=== PATIENT | male | born 1935 | race Caucasian/White ===

== ENCOUNTER 2017-09-18 15:09 | Observation (INO) | payer MEDICARE ==
[2017-09-18 16:21] LABS: Hematocrit 40 % (42-52); Mean Corpuscular HGB Conc 33 g/dl (31-36); Mean Corpuscular Hemoglobin 28 pg (27-31); Mean Corpuscular Volume 86 fL (80-94); Mean Platelet Volume 9.1 um3 (7.4-10.4); Platelet Count 218 10^3/ul (150-450); Red Cell Distribution Width 15 % (10.5-15); White Blood Count 12.4 10^3/ul (3.5-10.8)
[2017-09-18 16:27] LABS: INR 1.06 (0.77-1.02)
[2017-09-18 16:35] LABS: EGFR Non-African American 60.9 (>60)
[2017-09-18 16:39] LABS: ABS Basophils 0.1 10^3/ul (0-0.2); ABS Eosinophils 0.3 10^3/ul (0-0.6); ABS Lymphocytes 2.3 10^3/ul (1.0-4.8); ABS Monocytes 1.7 10^3/ul (0-0.8); ABS Nucleated RBC 0 10^3/ul; Eosinophil % 2.4 % (0-6); Lymphocyte % 18.6 % (25-47); Nucleated Red Blood Cells % 0.1
--- NOTE | 2017-09-18 17:19 | RAD ---
INDICATION: Shortness of breath. COMPARISON: Comparison is made with a prior study from January 09, 2016. TECHNIQUE: AP and lateral views of the chest were obtained. FINDINGS: The heart appears within normal limits in size. There is elevation of the right hemidiaphragm which is unchanged from the prior exam. The left lung is also underinflated. There is a small infiltrate at the left lung base. There is suggestion of a trace left pleural effusion. IMPRESSION: 1. LOW LUNG VOLUMES, SMALL LEFT BASILAR INFILTRATE. 2. CHRONIC ELEVATION OF THE RIGHT HEMIDIAPHRAGM.
[2017-09-18] MEDS ORDERED: NS 0.9% 1000 ML* 1,000 ML IV ONE (17:25)
[2017-09-18] MEDS ORDERED: Levofloxacin 750 MG IVPREMIX(* 750 MG/150 ML BAG IVPB ONE (17:25)
[2017-09-18] MEDS ORDERED: Albuterol/Ipratropium NEB.SOL* Albuterol 2.5 MG/Ipratropium 0.5 MG 3 ML INH PRN (18:55)
[2017-09-18] MEDS ORDERED: NS 0.9% 1000 ML* 1,000 ML IV SCH (19:00)
[2017-09-18] MEDS ORDERED: Azithromycin IV(*) 500 MG in NS 0.9% 250 ML* 250 ML IVPB SCH (21:00)
[2017-09-18] MEDS ORDERED: QUEtiapine TAB* 100 MG PO SCH (21:00)
--- NOTE | 2017-09-18 21:04 | ED ---
Osmel Acuña Gabriel, scribed for Landry Cash MD on 09/18/17 at 1550 . Shortness of Breath - HPI Summary HPI Summary: This patient is a 82 year old M presenting to [facility] accompanied by his family with a chief complaint of SOB since last night. The patient rates the pain 0/10 in severity. Pt has had a cold for the last 4 days which got worse last night. He saw his PCP [employer] and they are concerned for a collapse lung. Patient denies fever. He currently has bilateral pink eye. - History of Current Complaint Chief Complaint: EDShortnessOfBreath Time Seen by Provider: 09/18/17 15:18 Hx Obtained From: Patient Onset/Duration: Lasting Weeks, Worse Since Timing: Constant Current Severity: Mild Dyspnea At: Exertion Associated Signs & Symptoms: Negative - fever - Allergy/Home Medications Allergies/Adverse Reactions: Allergies Allergy/AdvReac Type Severity Reaction Status Date / Time No Known Allergies Allergy Verified 01/09/16 14:41 Home Medications: Home Medications Aspirin EC TAB* [Ecotrin EC Low Dose 81 MG*] 81 mg PO DAILY 09/18/17 [History Confirmed 09/18/17] Cholecalciferol TAB* [Vitamin D TAB*] 2,000 units PO DAILY 09/18/17 [History Confirmed 09/18/17] Fluorometholone 0.1% OPTH.JACQUI* [Fml 0.1% Opth.susp*] 1 drop BOTH EYES DAILY [History Confirmed 09/18/17] Latanoprost 0.005%* [Xalatan 0.005%*] 1 drop BOTH EYES QPM 09/18/17 [History Confirmed 09/18/17] Loteprednol/Tobra 0.3/0.5%(NF) [Zylet 0.3/0.5% (NF)] 1 jacqui LEFT EYE DAILY [History Confirmed 09/18/17] QUEtiapine TAB* [SEROquel TAB*] 100 mg PO BEDTIME 09/18/17 [History Confirmed ] Tobramycin 0.3% OPHTH.ELFEGO* 1 drop LEFT EYE TID 09/18/17 [History Confirmed 09/18] amLODIPine TAB* [Norvasc 5 mg TAB*] 2.5 mg PO DAILY 09/18/17 [History Confirmed 09/18/17] PMH/Surg Hx/FS Hx/Imm Hx Endocrine/Hematology History: Denies: Hx Blood Transfusions, Hx Systemic Lupus Erythematosus Cardiovascular History: Denies: Hx Embolism Respiratory History: Reports: Hx Chronic Obstructive Pulmonary Disease (COPD) Sensory History: Reports: Hx Deafness Infectious Disease History: No Infectious Disease History: Denies: Traveled Outside the [place] in Last 30 Days - Family History Known Family History: Positive: Cardiac Disease - father - Social History Lives: With Family Alcohol Use: None Substance Use Type: Reports: None Smoking Status (MU): Former Smoker - 1987 Type: Cigarettes Review of Systems Negative: Fever Positive: Shortness Of Breath All Other Systems Reviewed And Are Negative: Yes Physical Exam - Summary Physical Exam Summary: Appearance: The patient is well-nourished in no acute distress and in no acute pain. Skin: The skin is warm and dry and skin color reflects adequate perfusion. HEENT: The head is normocephalic and atraumatic. The pupils are equal and reactive. The conjunctivae are red. Nares are patent and without drainage. Mouth reveals moist mucous membranes and the throat is without erythema and exudate. The external ears are intact. The ear canals are patent and without drainage. The tympanic membranes are intact. Neck: the neck is supple with full range of motion and non-tender. There are no carotid bruits. There is no neck vein distension. Respiratory: Chest is non-tender. There are crackles throughout worse on the right Cardiovascular: Heart is regular rate and rhythm. There is no murmur or rub auscultated. There is no peripheral edema and pulses are symmetrical and equal. Abdomen: The abdomen is soft and non-tender. There are normal bowel sounds heard in all four quadrants and there is no organomegaly palpated. Musculoskeletal: There is no back tenderness noted. Extremities are non-tender with full range of motion. There is good capillary refill. There is no peripheral edema or calf tenderness elicited. Neurological: Patient is alert and oriented to person, place and time. The patient has symmetrical motor strength in all four extremities. Cranial nerves are grossly intact. Deep tendon reflexes are symmetrical and equal in all four extremities. Psychiatric: The patient has an appropriate affect and does not exhibit any anxiety or depression. Triage Information Reviewed: Yes Vital Signs On Initial Exam: Initial Vitals Temp Pulse Resp BP Pulse Ox 98.5 F 67 22 137/107 97 09/18/17 15:11 09/18/17 15:11 09/18/17 15:11 09/18/17 15:11 09/18/17 15:11 Vital Signs Reviewed: Yes Diagnostics - Vital Signs Vital Signs Temp Pulse Resp BP Pulse Ox 09/18/17 15:11 98.5 F 67 22 137/107 97 - Laboratory Lab Results: Lab Results 09/18/17 09/18/17 09/18/17 Range/Units 16:05 16:05 16:05 WBC 12.4 H (3.5-10.8) 10^3/ul RBC 4.60 (4.0-5.4) 10^6/ul Hgb 13.0 L (14.0-18.0) g/dl Hct 40 L (42-52) % MCV 86 (80-94) fL MCH 28 (27-31) pg MCHC 33 (31-36) g/dl RDW 15 (10.5-15) % Plt Count 218 (150-450) 10^3/ul MPV 9.1 (7.4-10.4) um3 Neut % (Auto) 64.4 (38-83) % Lymph % (Auto) 18.6 L (25-47) % Bertie % (Auto) 14.1 H (0-7) % Eos % (Auto) 2.4 (0-6) % Baso % (Auto) 0.5 (0-2) % Absolute Neuts (auto) 8.0 H (1.5-7.7) 10^3/ul Absolute Lymphs (auto) 2.3 (1.0-4.8) 10^3/ul Absolute Monos (auto) 1.7 H (0-0.8) 10^3/ul Absolute Eos (auto) 0.3 (0-0.6) 10^3/ul Absolute Basos (auto) 0.1 (0-0.2) 10^3/ul Absolute Nucleated RBC 0 10^3/ul Nucleated RBC % 0.1 INR (Anticoag Therapy) (0.77-1.02) Sodium 140 (139-145) mmol/L Potassium 3.9 (3.5-5.0) mmol/L Chloride 105 (101-111) mmol/L Carbon Dioxide 26 (22-32) mmol/L Anion Gap 9 (2-11) mmol/L BUN 18 (6-24) mg/dL Creatinine 1.15 (0.67-1.17) mg/dL Est GFR ( Amer) 78.3 (>60) Est GFR (Non-Af Amer) 60.9 (>60) BUN/Creatinine Ratio 15.7 (8-20) Glucose 103 H (70-100) mg/dL Lactic Acid (0.5-2.0) mmol/L Calcium 9.2 (8.6-10.3) mg/dL Total Bilirubin 0.60 (0.2-1.0) mg/dL AST 22 (13-39) U/L ALT 15 (7-52) U/L Alkaline Phosphatase 133 H (34-104) U/L Troponin I 0.00 (<0.04) ng/mL C-Reactive Protein 103.15 H (< 5.00) mg/L B-Natriuretic Peptide 52 ( - 100) pg/mL Total Protein 6.8 (6.4-8.9) g/dL Albumin 3.3 (3.2-5.2) g/dL Globulin 3.5 (2-4) g/dL Albumin/Globulin Ratio 0.9 L (1-3) Procalcitonin (<0.6) ng/mL Influenza A (Rapid) (Negative) Influenza B (Rapid) (Negative) 09/18/17 09/18/17 09/18/17 Range/Units 16:05 16:05 16:05 WBC (3.5-10.8) 10^3/ul RBC (4.0-5.4) 10^6/ul Hgb (14.0-18.0) g/dl Hct (42-52) % MCV (80-94) fL MCH (27-31) pg MCHC (31-36) g/dl RDW (10.5-15) % Plt Count (150-450) 10^3/ul MPV (7.4-10.4) um3 Neut % (Auto) (38-83) % Lymph % (Auto) (25-47) % Bertie % (Auto) (0-7) % Eos % (Auto) (0-6) % Baso % (Auto) (0-2) % Absolute Neuts (auto) (1.5-7.7) 10^3/ul Absolute Lymphs (auto) (1.0-4.8) 10^3/ul Absolute Monos (auto) (0-0.8) 10^3/ul Absolute Eos (auto) (0-0.6) 10^3/ul Absolute Basos (auto) (0-0.2) 10^3/ul Absolute Nucleated RBC 10^3/ul Nucleated RBC % INR (Anticoag Therapy) 1.06 H (0.77-1.02) Sodium (139-145) mmol/L Potassium (3.5-5.0) mmol/L Chloride (101-111) mmol/L Carbon Dioxide (22-32) mmol/L Anion Gap (2-11) mmol/L BUN (6-24) mg/dL Creatinine (0.67-1.17) mg/dL Est GFR ( Amer) (>60) Est GFR (Non-Af Amer) (>60) BUN/Creatinine Ratio (8-20) Glucose (70-100) mg/dL Lactic Acid 2.2 H* (0.5-2.0) mmol/L Calcium (8.6-10.3) mg/dL Total Bilirubin (0.2-1.0) mg/dL AST (13-39) U/L ALT (7-52) U/L Alkaline Phosphatase (34-104) U/L Troponin I (<0.04) ng/mL C-Reactive Protein (< 5.00) mg/L B-Natriuretic Peptide ( - 100) pg/mL Total Protein (6.4-8.9) g/dL Albumin (3.2-5.2) g/dL Globulin (2-4) g/dL Albumin/Globulin Ratio (1-3) Procalcitonin 0.1 (<0.6) ng/mL Influenza A (Rapid) (Negative) Influenza B (Rapid) (Negative) 09/18/17 Range/Units 16:25 WBC (3.5-10.8) 10^3/ul RBC (4.0-5.4) 10^6/ul Hgb (14.0-18.0) g/dl Hct (42-52) % MCV (80-94) fL MCH (27-31) pg MCHC (31-36) g/dl RDW (10.5-15) % Plt Count (150-450) 10^3/ul MPV (7.4-10.4) um3 Neut % (Auto) (38-83) % Lymph % (Auto) (25-47) % Bertie % (Auto) (0-7) % Eos % (Auto) (0-6) % Baso % (Auto) (0-2) % Absolute Neuts (auto) (1.5-7.7) 10^3/ul Absolute Lymphs (auto) (1.0-4.8) 10^3/ul Absolute Monos (auto) (0-0.8) 10^3/ul Absolute Eos (auto) (0-0.6) 10^3/ul Absolute Basos (auto) (0-0.2) 10^3/ul Absolute Nucleated RBC 10^3/ul Nucleated RBC % INR (Anticoag Therapy) (0.77-1.02) Sodium (139-145) mmol/L Potassium (3.5-5.0) mmol/L Chloride (101-111) mmol/L Carbon Dioxide (22-32) mmol/L Anion Gap (2-11) mmol/L BUN (6-24) mg/dL Creatinine (0.67-1.17) mg/dL Est GFR ( Amer) (>60) Est GFR (Non-Af Amer) (>60) BUN/Creatinine Ratio (8-20) Glucose (70-100) mg/dL Lactic Acid (0.5-2.0) mmol/L Calcium (8.6-10.3) mg/dL Total Bilirubin (0.2-1.0) mg/dL AST (13-39) U/L ALT (7-52) U/L Alkaline Phosphatase (34-104) U/L Troponin I (<0.04) ng/mL C-Reactive Protein (< 5.00) mg/L B-Natriuretic Peptide ( - 100) pg/mL Total Protein (6.4-8.9) g/dL Albumin (3.2-5.2) g/dL Globulin (2-4) g/dL Albumin/Globulin Ratio (1-3) Procalcitonin (<0.6) ng/mL Influenza A (Rapid) Negative (Negative) Influenza B (Rapid) Negative (Negative) Result Diagrams: 09/18/17 16:05 09/18/17 16:05 Lab Statement: Any lab studies that have been ordered have been reviewed, and results considered in the medical decision making process. - Radiology CXR Radiology Interpretation Completed By: Radiologist - , 1. LOW LUNG VOLUMES, SMALL LEFT BASILAR INFILTRATE. 2. CHRONIC ELEVATION OF THE RIGHT HEMIDIAPHRAGM. ED physician has reviewed this radiology report - EKG 15:50 Cardiac Rate: NL EKG Rhythm: Sinus Rhythm - at 63 BPM EKG Interpretation: first degree AV block Course/Dx - Course Course Of Treatment: Mr. Miller was sent over from his PMD's office after a CXR was obtained. He had gone to the office because he has been getting weaker and weaker over the last week or so. He admits to a cough. His W/U here revealed reasonable vitals, an infiltrate and elevated WBC and CRP levels. He is too weak for his caregivers to manage at this point and the hospitalists have been contacted to evaluate him. - Diagnoses Provider Diagnoses: PNA (pneumonia) - Physician Notifications Discussed Care of Patient With: Eduardo Lewis Time Discussed With Above Provider: 17:42 Instructed by Provider To: Admit As Inpatient Discharge - Sign-Out/Discharge Documenting (check all that apply): Discharge - Discharge Plan Condition: Fair Disposition: ADMITTED TO [facility] - Billing Disposition and Condition Condition: FAIR Disposition: [facility] [place] The documentation as recorded by the Osmel sanabria Gabriel accurately reflects the service I personally performed and the decisions made by me, Landry Cash MD.
--- NOTE | 2017-09-18 21:24 | HP ---
CC: Dr. Gates * HISTORY AND PHYSICAL: DATE OF ADMISSION: 09/18/17 ATTENDING PHYSICIAN WHILE IN THE HOSPITAL: Basilia Cronin MD * (dictated by Naz Rosario NP). CHIEF COMPLAINT: 1. Cough. 2. Shortness of breath. HISTORY OF PRESENT ILLNESS: Mr. Miller is an 82-year-old gentleman with a past medical history significant for hypertension. He was at his primary care provider's office today for complaints of cough and congestion. He had a chest x- ray taken at the office and there were thoughts he may have a pneumothorax, so he was sent to the emergency room for further evaluation. The patient reports that he has had URI symptoms for the past 2 days and developed a cough yesterday that has progressively gotten worse. He denies any fever or chills, any nausea or vomiting. Denies any shortness of breath. Denies any abdominal pain or diarrhea. Denies any recent sick contacts. The patient also reports that he was recently diagnosed with conjunctivitis on Friday and was placed on tobramycin and a steroid eye drop by his doctor. The patient was seen and evaluated in the emergency room, routine lab work was drawn and a chest x-ray was completed. He was found to have left basilar infiltrate, so we were asked to see and evaluate him by the emergency room physician for admission for pneumonia. PAST MEDICAL HISTORY: Significant for: 1. Hypertension. 2. Glaucoma. PAST SURGICAL HISTORY: No surgical history. HOME MEDICATIONS: Include: 1. Aspirin 81 mg p.o. daily. 2. Vitamin D 3000 units p.o. daily. 3. Ibuprofen p.r.n. 4. Seroquel 100 mg p.o. at bedtime. 5. Xalatan 1 drop both eyes q.p.m. 6. Amlodipine 2.5 mg p.o. daily. 7. Tobramycin 0.3% ophthalmic solution 1 drop to both eyes t.i.d. ALLERGIES TO MEDICATIONS: No known drug allergies. FAMILY HISTORY: Father with an NC and mother with an NC, mother also had spine cancer. Brother also had some unknown cancer. SOCIAL HISTORY: The patient is a former smoker, he quit in 1972, prior to that he smoked cigars approximately 7 cigars a day. He does report that he drinks 2 to 3 times a week. He drinks vodka. He denies any illicit drug use. He is a full code. Surrogate decision maker in the event he is unable to make his own decisions is his son Itz Miller, his phone number is [phone]. REVIEW OF SYSTEMS: There was no documented fever, no significant weight change. He does report redness and itching to bilateral eyes. There has been no ear drainage. He does report rhinorrhea. He denies any sore throat. He denies any chest pain. He does report cough and congestion, but denies shortness of breath. He denies any abdominal pain. Denies nausea, vomiting or diarrhea. Denies dysuria or urinary frequency. Denies any hematuria. There were no seizures, no loss of consciousness, no pruritus or skin ulcerations. A review of 14 systems was completed and all others were negative. PHYSICAL EXAMINATION GENERAL: At this time, Mr. Miller is an 82-year-old male who appears in no acute distress, sitting on the stretcher in the emergency room. VITAL SIGNS: Blood pressure 124/84, heart rate is 72, respirations are 22 to 25 , O2 saturation is 96%, temperature on admission was 98.5. HEENT: Head is atraumatic, normocephalic. Eyes: EOMs are intact. Conjunctivae with redness and swelling. He also has some periorbital redness and swelling that is mild. Oral mucosa appears to be moist. No oropharyngeal erythema. NECK: Supple. LUNGS: Diminished throughout bilaterally with crackles in the left base. There are no wheezes or rales. CARDIAC: S1, S2, regular rate and rhythm. No murmurs, rubs or gallops. ABDOMEN: Soft and nontender. Bowel sounds are present x4. EXTREMITIES: Pulses are +2 throughout. He is moving all extremities with 5/5 strength. NEUROLOGIC: He is awake and alert and oriented x3. Gl[employer] Inspector are equal. Tongue is midline. Speech is clear. There is no focal neuro deficits. SKIN: Intact. He does have some mild erythema around bilateral eyes. DIAGNOSTIC AND LABORATORY DATA: WBCs are 12.4, RBCs 4.60, hemoglobin 13.0, hematocrit was 40, platelet count was 218,000. INR was 1.06. Sodium 140, potassium 3.9, chloride 105, carbon dioxide was 26, anion gap was 9, BUN was 18 , creatinine 1.15, glucose was 103, lactic acid 2.2. AST 22, ALT 15, alkaline phosphatase was 133, C-reactive protein was 103.15, BNP was 52, procalcitonin was 0.1. Chest x-ray, radiologist impression: 1. Low lung volumes, small left basilar infiltrate. 2. Chronic elevation of the right hemidiaphragm. EKG: Heart rate is 63, sinus rhythm. ASSESSMENT AND PLAN: Mr. Miller is an 82-year-old gentleman that presented to the emergency room today complaining of increased cough. He was found to have pneumonia on chest x-ray. He will admitted under observation for: 1. Pneumonia: I will place him on azithromycin and ceftriaxone. He can have albuterol and Atrovent nebulizers as needed for shortness of breath and wheezing. I will also give him guaifenesin for his cough. We will repeat CBC and BMP in the morning and repeat his lactic acid. 2. Conjunctivitis: He has bilateral conjunctivitis. He will be continued on his tobramycin and steroid eye drops as prior to admission. 3. Hypertension: He will be continued on Norvasc and aspirin. 4. DVT prophylaxis: We will place him on heparin subcu. 5. Code status: He is a full code. 6. Fluids, electrolytes and nutrition: He will have heart healthy, caffeine okay diet. TIME SPENT: Time spent on this admission was approximately 60 minutes, greater than half the time was spent [id number] with the patient obtaining my history and physical, the other half of the time was spent going over the plan of care with the patient and implementing that plan of care. I have discussed this with my attending, Dr. Basilia Cronin, and she is in agreement with my plan. NAZ ROSARIO, TRAVEL NURSE [id number]/[facility] #: [id number] SHANA
[2017-09-18] MEDS: guaiFENesin ER TAB 600 MG PO SCH (21:35)
[2017-09-18] MEDS: Tobramycin 0.3% OPHTH.SOL* 5 ML BOT (regular eye drops) LEFT EYE SCH (21:36)
[2017-09-18] MEDS: Heparin VIAL(*) 5000 UNITS/ML VIAL (FIVE THOUSAND) SUBCUT SCH (21:46)
[2017-09-19 05:31] LABS: ABS Basophils 0.1 10^3/ul (0-0.2); ABS Eosinophils 0.4 10^3/ul (0-0.6); ABS Lymphocytes 1.9 10^3/ul (1.0-4.8); ABS Monocytes 1.3 10^3/ul (0-0.8); ABS Neutrophils 5.9 10^3/ul (1.5-7.7); ABS Nucleated RBC 0 10^3/ul; Eosinophil % 3.8 % (0-6); Hematocrit 37 % (42-52); Hemoglobin 12.3 g/dl (14.0-18.0); Lymphocyte % 19.7 % (25-47); Mean Corpuscular HGB Conc 34 g/dl (31-36); Mean Corpuscular Hemoglobin 29 pg (27-31); Mean Corpuscular Volume 85 fL (80-94); Mean Platelet Volume 8.6 um3 (7.4-10.4); Nucleated Red Blood Cells % 0; Platelet Count 201 10^3/ul (150-450); Red Blood Count 4.31 10^6/ul (4.0-5.4); Red Cell Distribution Width 15 % (10.5-15); White Blood Count 9.5 10^3/ul (3.5-10.8)
[2017-09-19 05:47] LABS: EGFR Non-African American 66.9 (>60)
[2017-09-19] MEDS: Heparin VIAL(*) 5000 UNITS/ML VIAL (FIVE THOUSAND) SUBCUT SCH (06:18)
[2017-09-19 08:07] VITALS: BP 122/56
[2017-09-19] MEDS: Tobramycin 0.3% OPHTH.SOL* 5 ML BOT (regular eye drops) LEFT EYE SCH (08:45)
[2017-09-19] MEDS: guaiFENesin ER TAB 600 MG PO SCH (08:45)
[2017-09-19] MEDS ORDERED: cefTRIAXone(*) 1 GM in NS 0.9% 50 ML* 50 ML IVPB SCH (09:00)
[2017-09-19] MEDS ORDERED: Cholecalciferol TAB* 1000 UNITS PO SCH (09:00)
[2017-09-19] MEDS ORDERED: TOBRAMYCIN LEFT EYE SCH (09:00)
[2017-09-19] MEDS ORDERED: amLODIPine TAB* 5 MG PO SCH (09:00)
[2017-09-19] MEDS ORDERED: Fluorometholone 0.1% OPTH.SUS* 5 ML BTL BOTH EYES SCH (09:00)
[2017-09-19] MEDS ORDERED: Aspirin EC TAB* 81 MG TAB.EC PO SCH (09:00)
[2017-09-19] MEDS ORDERED: LOTEPREDNOL LEFT EYE SCH (09:00)
[2017-09-19] MEDS ORDERED: Latanoprost 0.005%* 2.5 ml BTL BOTH EYES SCH (18:00)
--- NOTE | 2017-09-19 23:19 | DS ---
CC: Dr. Gates* DISCHARGE SUMMARY: DATE OF ADMISSION: 09/18/17 DATE OF DISCHARGE: 09/19/17 PROVIDER: Vin Rosario NP ATTENDING PHYSICIAN: Mamie Villa MD* (dictated by Vin Rosario NP). PRIMARY CARE PROVIDER: Dr. Gates. PRIMARY DIAGNOSES: 1. Pneumonia. 2. Conjunctivitis. SECONDARY DIAGNOSES: 1. Hypertension. 2. Glaucoma. STUDIES COMPLETED WHILE IN THE HOSPITAL: He had a chest x-ray, which showed: 1. Low lung volumes, small left basilar infiltrate. 2. Chronic elevated of the right hemidiaphragm. He had an electrocardiogram on 09/18/17, which showed sinus rhythm at a rate of 63. DISCHARGE MEDICATIONS: 1. Doxycycline 100 mg p.o. b.i.d. 2. Tessalon Perles 100 mg p.o. t.i.d. as needed for cough. 3. Guaifenesin 600 mg p.o. b.i.d. p.r.n. cough. Continued home medications: 1. Aspirin 81 mg p.o. daily. 2. Vitamin D 3000 units p.o. daily. 3. Seroquel 100 mg p.o. at bedtime. 4. Xalatan 1 drop both eyes q.p.m. 5. Amlodipine 2.5 mg p.o. daily. 6. Tobramycin 0.3% ophthalmic solution 1 drop to both eyes t.i.d. 7. Fluorometholone 0.1% ophthalmic suspension 1 drop to both eyes daily. HISTORY OF PRESENT ILLNESS AND HOSPITAL COURSE: Mr. Miller is an 82-year-old male with a past medical history of hypertension and glaucoma who was seen at his primary care provider's office on the day of admission for complaints of cough and congestion. He had a chest x-ray taken in the office and there were thoughts that he had a pneumothorax, so he was sent to the emergency room for further evaluation. The patient reports that he has had URI symptoms for 2 days prior to admission and that the cough started yesterday and has progressively gotten worse. He denies any fever, chills, nausea, vomiting, or diarrhea. Denies any shortness of breath. Denies any abdominal pain. Denies any recent sick contacts. He also reports that he was recently diagnosed with conjunctivitis on Friday and was placed on Tobramycin and steroid eye drop by his doctor. Due to the pneumonia found on his chest x-ray, we were asked to admit him for further evaluation. During his hospitalization, we monitored him overnight. He received IV antibiotics, azithromycin and ceftriaxone for the pneumonia. The patient remained without shortness of breath throughout his hospitalization. He does have a moist cough that is nonproductive. At this time, Mr. Miller is stable for discharge back home. Mr. Miller is stable for discharge home. Vital signs are as follows: Blood pressure 122/56, temperature was 98.4, heart rate was 66, respirations are 20, O2 saturation was 98%. DISCHARGE PLAN: Mr. Miller will be discharged back home today. Activity as tolerated. I have ordered in-home physical therapy to assist with gait and strength training. His caregiver states that she has, for the past 6 months, been lifting him and pivoting him to assist him with talking that he continues to have increased weakness. The patient was offered short-term rehab, but declined stating that he wanted to go home and have in-home physical therapy. The caregiver states that there has been no change in his ability to transfer and ambulate at home that this is how the care has been for the past 6 months. 1. For pneumonia, he will be placed on doxycycline 100 mg p.o. b.i.d. x7 days. He can take Tessalon Perles 100 mg p.o. t.i.d. as needed for cough. He was also given Mucinex 600 mg p.o. b.i.d. as needed for congestion. He should follow up with his primary care provider in 4 to 7 days. 2. Hypertension. He should continue his amlodipine as previously prescribed. 3. Glaucoma. He should continue his Xalatan eye drops. FOLLOWUP: He should follow up with his primary care provider in 4 to 7 days. The patient should return to the emergency room for any chest pain, shortness of breath, or any worsening of his symptoms or any other medical concerns. This is a summarization of his hospitalization. For further details, please see the entire medical record. TIME SPENT: Time spent on this discharge was approximately 60 minutes; greater than half that time was spent with the patient discussing discharge plans and instructions. CONDITION ON DISCHARGE: Fair. My discharge plans were discussed with Dr. Mamie Villa and she is in agreement with my plan. VIN ROSARIO, CLOUD AUTOMATION TESTER [id number]/[facility] #: [id number] [facility]
== END 2017-09-19 12:00 | disposition home or self-care (01) ==
LOC: ED 15:09 → MED 18:12
PROVIDERS: ADMIT Internal Medicine; ATTEND Internal Medicine
DX: J18.9 Pneumonia, unspecified organism (principal); H10.9 Unspecified conjunctivitis; I10 Essential (primary) hypertension; H40.9 Unspecified glaucoma; Z79.899 Other long term (current) drug therapy; R06.02 Shortness of breath; Z87.891 Personal history of nicotine dependence; R94.31 Abnormal electrocardiogram [ECG] [EKG]
CPT/HCPCS: 36415; 71046; 80053; 83605; 83880; 84145; 84484; 85025; 85610; 86140; 87040; 87502; 93005; 96365; 96367; 96372; 99284; A9270-GY; G0378; J0456; J0696; J1644

== ENCOUNTER 2018-07-24 14:37 | Emergency (ER) | payer MEDICARE ==
--- NOTE | 2018-07-24 14:56 | ED ---
Complex/Multi-Sys Presentation - HPI Summary HPI Summary: Pt is an 83 y/o M presenting to the ED sent over from wound clinic. LEVEL 5 CAVEAT: The pt is unable to give full hx due to dementia. The pt was sent from the wound clinic for an MRI. - History Of Current Complaint Chief Complaint: EDExtremityLower Time Seen by Provider: 07/24/18 14:46 Hx Obtained From: EMS Hx From Patient Unobtainable Due To: Dementia Onset/Duration: Still Present Timing: Constant Severity Currently: None Location: Negative Aggravating Factor(s): none Alleviating Factor(s): none - Allergies/Home Medications Allergies/Adverse Reactions: Allergies Allergy/AdvReac Type Severity Reaction Status Date / Time No Known Allergies Allergy Verified 07/24/18 14:47 Home Medications: Home Medications Acetaminophen TAB* [Tylenol TAB*] 325 mg PO 0900,2100 07/24/18 [History Confirmed 07/24/18] Latanoprost 0.005%* [Xalatan 0.005%*] 1 drop BOTH EYES BEDTIME 07/24/18 [ History Confirmed 07/24/18] Miconazole Nitrate [ Miconazole Nitrate] 2 % TOPICAL BID PRN 07/24/18 [ History Confirmed 07/24/18] Nutritional Supplement [Resource 2.0] 120 ml PO ACHS 07/24/18 [History Confirmed 07/24/18] QUEtiapine TAB* [Seroquel 100 MG *] 100 mg PO BEDTIME 07/24/18 [History Confirmed 07/24/18] QUEtiapine TAB* [Seroquel 25 MG TAB*] 50 mg PO BEDTIME 07/24/18 [History Confirmed 07/24/18] PMH/Surg Hx/FS Hx/Imm Hx Previously Healthy: No Endocrine/Hematology History: Denies: Hx Blood Transfusions, Hx Systemic Lupus Erythematosus Cardiovascular History: Reports: Hx Hypertension Denies: Hx Embolism Respiratory History: Reports: Hx Chronic Obstructive Pulmonary Disease (COPD) Musculoskeletal History: Reports: Other Musculoskeletal History - Weakness, doesn't like to walk at all Sensory History: Reports: Hx Glaucoma, Hx Deafness, Hx Hearing Problem - Talk loudly, especially in left ear Denies: Hx Contacts or Glasses, Hx Hearing Aid Opthamlomology History: Reports: Hx Glaucoma Denies: Hx Contacts or Glasses Neurological History: Reports: Hx Dementia Infectious Disease History: No Infectious Disease History: Denies: Traveled Outside the [place] in Last 30 Days - Family History Known Family History: Positive: Cardiac Disease - father - Social History Alcohol Use: None Substance Use Type: Reports: None Smoking Status (MU): Former Smoker - 1987 Type: Cigarettes Have You Smoked in the Last Year: No Review of Systems Negative: Fever Negative: Vomiting All Other Systems Reviewed And Are Negative: No Physical Exam - Summary Physical Exam Summary: Appearance: The patient is well-nourished in no acute distress and in no acute pain. Skin: The skin is warm and dry and skin color reflects adequate perfusion HEENT: The head is normocephalic and atraumatic. The pupils are equal and reactive. The conjunctivae are clear and without drainage. Nares are patent and without drainage. Mouth reveals moist mucous membranes and the throat is without erythema and exudate. The external ears are intact. The ear canals are patent and without drainage. The tympanic membranes are intact. Neck: The neck is supple with full range of motion and non-tender. There are no carotid bruits. There is no neck vein distension. Respiratory: Chest is non-tender. Lungs are clear to auscultation and breath sounds are symmetrical and equal. Cardiovascular: Heart is regular rate and rhythm. There is no murmur or rub auscultated. There is no peripheral edema and pulses are symmetrical and equal. Abdomen: The abdomen is soft and non-tender. There are normal bowel sounds heard in all four quadrants and there is no organomegaly palpated. Musculoskeletal: There is no back tenderness noted. Extremities are non-tender with full range of motion. There is good capillary refill. There is no peripheral edema or calf tenderness elicited. Bilateral deep pressure ulcers on heels. Neurological: Patient is alert and oriented to person, place and time. The patient has symmetrical motor strength in all four extremities. Cranial nerves are grossly intact. Deep tendon reflexes are symmetrical and equal in all four extremities. Psychiatric: The patient has an appropriate affect and does not exhibit any anxiety or depression. Triage Information Reviewed: Yes Vital Signs On Initial Exam: Initial Vitals Temp Pulse Resp BP Pulse Ox 98.6 F 73 17 122/63 100 07/24/18 14:39 07/24/18 14:39 07/24/18 14:39 07/24/18 14:39 07/24/18 14:39 Vital Signs Reviewed: Yes Completion Of Physical Exam Limited Due To: Dementia Diagnostics - Vital Signs Vital Signs Temp Pulse Resp BP Pulse Ox 07/24/18 14:39 98.6 F 73 17 122/63 100 - Laboratory Result Diagrams: 07/24/18 15:55 07/24/18 15:55 Lab Statement: Any lab studies that have been ordered have been reviewed, and results considered in the medical decision making process. Complex Multi-Symp Course/Dx Course Of Treatment: Mr. Miller was sent to the emergency department by the wound clinic. He has a deep pressure wound on his heel. 10 days ago and x-ray was obtained which suggested osteomyelitis and recommended confirmatory MRI scan. Mr. Miller was nontoxic in appearance with stable vitals. He had a very slight elevation of his white blood cell count at 13. Culture of his wound 10 days ago showed strep. He was given IV vancomycin here in the emergency department with a presumption of cellulitis. He may possibly have osteomyelitis and need to have that MRI scan. This can be done as an outpatient I will start him on Keflex to treat his cellulitis in the meantime. My intention is that on Friday he can get the MRI scan and if it does show osteomyelitis at that time a PICC line could be started for him for IV penitentiary antibiotics. - Diagnoses Provider Diagnoses: Cellulitis Discharge - Sign-Out/Discharge Documenting (check all that apply): Patient Departure - Discharge Patient Received Moderate/Deep Sedation with Procedure: No - Discharge Plan Condition: Stable Disposition: HOME Prescriptions: Cephalexin CAP* [Keflex CAP*] 500 mg PO QID #20 cap Patient Education Materials: Cellulitis (ED) Referrals: Maru Gates MD [Primary Care Provider] - 3 Days Additional Instructions: Follow up on Friday for MRI. Return to ED for any new or worsening symptoms. - Billing Disposition and Condition Condition: STABLE Disposition: Home - Attestation Statements Document Initiated by Scribe: Yes Documenting Scribe: Maryana Lopez Provider For Whom Minda is Documenting (Include Credential): Landry Cash MD. Scribe Attestation: Maryana Acuña, ailynibed for Landry Cash MD. on 07/24/18 at 2126. Scribe Documentation Reviewed: Yes Provider Attestation: The documentation as recorded by the scribe, Maryana Lopez accurately reflects the service I personally performed and the decisions made by me, Landry Cash MD. Status of Scribe Document: Viewed
[2018-07-24 16:08] LABS: Hematocrit 34 % (42-52); Hemoglobin 10.9 g/dl (14.0-18.0); Mean Corpuscular HGB Conc 32 g/dl (31-36); Mean Corpuscular Hemoglobin 26 pg (27-31); Mean Corpuscular Volume 81 fL (80-94); Mean Platelet Volume 8.7 fL (7.4-10.4); Platelet Count 281 10^3/ul (150-450); Red Blood Count 4.14 10^6/ul (4.00-5.40); Red Cell Distribution Width 16 % (10.5-15); White Blood Count 13.2 10^3/ul (3.5-10.8)
[2018-07-24 16:11] LABS: INR 1.17 (0.77-1.02)
[2018-07-24 16:26] LABS: ALT 6 U/L (7-52); AST 12 U/L (13-39); Albumin 3.3 g/dL (3.2-5.2); Alkaline Phosphatase 94 U/L (34-104); BUN/Creatinine Ratio 13.7 (8-20); Blood Urea Nitrogen 13 mg/dL (6-24); C Reactive Protein 62.37 mg/L (<8.01); CO2 Carbon Dioxide 32 mmol/L (22-32); Calcium 9.1 mg/dL (8.6-10.3); Chloride 105 mmol/L (101-111); EGFR African American 91.6 (>60); EGFR Non-African American 75.7 (>60); Globulin 3.3 g/dL (2-4); Glucose 111 mg/dL (70-100); Potassium 4.3 mmol/L (3.5-5.0); Sodium 137 mmol/L (135-145); Total Protein 6.6 g/dL (6.4-8.9)
[2018-07-24 16:43] LABS: Lymphocytes % 13 %; Monocytes % 12 %; Neutrophil % 63 %; Variant Lymph % 3 % (0-6)
[2018-07-24 16:48] LABS: ABS Eosinophils 1.3 10^3/ul (0-0.6); ABS Neutrophils 8.2 10^3/ul (1.5-7.7)
[2018-07-24] MEDS ORDERED: Vancomycin(*) 1,000 MG in NS 0.9% 250 ML* 250 ML IVPB ONE (16:49)
[2018-07-24] MEDS ORDERED: cefTRIAXone(*) 1 GM in NS 0.9% 50 ML* 50 ML IVPB ONE (18:25)
[2018-07-24 18:34] VITALS: BP 119/67
== END 2018-07-24 18:34 | disposition home or self-care (01) ==
LOC: ED 14:37
DX: L03.90 Cellulitis, unspecified (principal); I10 Essential (primary) hypertension; J44.9 Chronic obstructive pulmonary disease, unspecified; F03.90 Unspecified dementia, unspecified severity, without behavioral disturbance, psychotic disturbance, mood disturbance, and anxiety; Z87.891 Personal history of nicotine dependence
CPT/HCPCS: 36415; 80053; 83605; 84484; 85025; 85060; 85610; 86140; 87040; 96360; 99283; J3370

== ENCOUNTER 2019-03-30 15:18 | Inpatient (IN) | payer MEDICARE ==
[2019-03-30] MEDS ORDERED: Succinylcholine* 20 MG/ML 10 ML VIAL IV ONE (15:27)
[2019-03-30] MEDS ORDERED: Etomidate* 2 MG/ML 10 ML VIAL IV ONE (15:28)
[2019-03-30] MEDS ORDERED: Propofol* 100 ML IV ONE (15:28)
[2019-03-30] MEDS ORDERED: Levofloxacin 750 MG IVPREMIX(* 750 MG/150 ML BAG IVPB ONE (15:29)
--- NOTE | 2019-03-30 15:35 | ED ---
Respiratory - HPI Summary HPI Summary: Pt is an 84 y/o M presenting to the ED brought in by EMS for respiratory distress. LEVEL 5 CAVEAT: Pts full hx and physical is unobtainable d/t respiratory distress. Per EMS, pt is from [facility] where staff report he vomited this morning and they believe he may have aspirated. He also had a fever this morning but gave him Tylenol. His SaO2 was in the 50s on room air, the highest they could get it was in the 80s. Pt is also rolling his eyes around and had decreased mentation. He has also had an increase in Tramadol over the past week or so which they think has caused some somnolence, had pneumonia about 2 months ago, and has dx of dementia. - History of Current Complaint Stated Complaint: DIFFICULTY BREATHING PER EMS Hx Obtained From: EMS Hx From Patient Unobtainable Due To: Other - resp distress, dementia Onset/Duration: Gradual Onset, Lasting Hours, Still Present Timing: Constant Initial Severity: Moderate Current Severity: Moderate - Allergy/Home Medications Allergies/Adverse Reactions: Allergies Allergy/AdvReac Type Severity Reaction Status Date / Time No Known Allergies Allergy Verified 01/24/19 11:42 Home Medications: Home Medications Sertraline* [Zoloft*] 75 mg PO DAILY 03/30/19 [History Confirmed 03/30/19] traMADol TAB* [Ultram*] 100 mg PO TID 03/30/19 [History Confirmed 03/30/19] PMH/Surg Hx/FS Hx/Imm Hx Endocrine/Hematology History: Denies: Hx Blood Transfusions, Hx Systemic Lupus Erythematosus Cardiovascular History: Reports: Hx Hypertension Denies: Hx Embolism Respiratory History: Reports: Hx Chronic Obstructive Pulmonary Disease (COPD) Musculoskeletal History: Reports: Other Musculoskeletal History - Weakness, doesn't like to walk at all Sensory History: Reports: Hx Glaucoma, Hx Deafness, Hx Hearing Problem - Talk loudly, especially in left ear Denies: Hx Contacts or Glasses, Hx Hearing Aid Opthamlomology History: Reports: Hx Glaucoma Denies: Hx Contacts or Glasses Neurological History: Reports: Hx Dementia - Surgical History Surgery Procedure, Year, and Place: None reported - Family History Known Family History: Positive: Cardiac Disease - father - Social History Alcohol Use: None Hx Substance Use: No Substance Use Type: Reports: None Hx Tobacco Use: Yes Smoking Status (MU): Former Smoker - 1988 Type: Cigarettes Have You Smoked in the Last Year: No Review of Systems - ROS Summary Review of Systems Summary: LEVEL 5 CAVEAT: Pts full hx and physical is unobtainable d/t respiratory distress. Positive: Fever Positive: Shortness Of Breath All Other Systems Reviewed And Are Negative: No Physical Exam - Summary Physical Exam Summary: Constitutional: Elderly, ill-appearing, moderate respiratory distress. Skin: Warm, diaphoretic HENT: Normocephalic; Atraumatic. Adentulous. Dry mucous membranes. Eyes: Conjunctiva normal Neck: Musculoskeletal ROM normal neck. (-) JVD, (-) Stridor, (-) Nuchal rigidity Cardio: Rhythm regular, rate tachycardic, Heart sounds normal; Intact distal pulses; Radial pulses are 2+ and symmetric. (-) Murmur Pulmonary/Chest wall: Bilateral rhonchi. Increased work of breathing. Accessory muscle use. Abd: Soft, (-) tenderness, (-) Distension, (-) Guarding, (-) Rebound Musculoskeletal: Trace edema of R hand. Lymph: (-) Cervical adenopathy Neuro: Moaning, responds to voice. Psych: Deferred Triage Information Reviewed: Yes Vital Signs Reviewed: Yes Completion Of Physical Exam Limited Due To: Dementia, Level 5 Procedures - Sedation Patient Received Moderate/Deep Sedation with Procedure: No - Intubation Time of Intubation: 15:36 Intubation Method: orotracheal Tube Size (cm): 7.5 - w/ MAC 3 blade Medications: Succinylcholine - 80mg. and 20mg Etomidate. both given within 1535 minute Breath Sounds after Intubation: equal Intubation Complications: no complications Post Intubation Xray: Yes Diagnostics - Laboratory Result Diagrams: 03/30/19 15:28 03/30/19 15:28 Lab Statement: Any lab studies that have been ordered have been reviewed, and results considered in the medical decision making process. - Radiology CXR Radiology Interpretation Completed By: Radiologist Summary of Radiographic Findings: 1. LINES AND TUBES ABOVE. 2. SMALL RIGHT PLEURAL EFFUSION. 3. BIBASILAR ATELECTASIS VERSUS CONSOLIDATION. ED physician has reviewed this report. - EKG 1555 Cardiac Rate: Tachycardia - 105bpm EKG Rhythm: Sinus Tachycardia ST Segment: Normal Ectopy: None Summary of EKG Findings: An EKG at 1555 reveals sinus tachycardia at 105bpm, nml axis, nml intervals, with artifact. No STEMI. No acute changes. ED physician has reviewed and interpreted this EKG. Re-Evaluation - Re-Evaluation 1st re-eval Re-Evaluation Time: 16:12 Change: Unchanged Comment: Pts labs critical for Sodium 162, WBC 21, and Troponin of .12. Disposition - Course Course Of Treatment: 84-year-old male history of dementia presenting from senior living for increased work of breathing. On arrival to emergency department, patient RR the 50s, severely increased work of breathing. ill- appearing. Per MOLST form, patient's full code therefore decision to intubate for respiratory distress. patient intubated without complication, post intubation chest x-ray with bilateral infiltrates, covered with Levaquin for pneumonia. Lactic acid elevated to 4.8, given 1 L of normal saline, further IV fluid boluses deferred at this time given recent hypernatremia and concern for overcorrection. Patient was started on /2 NS at 225 cc/h to correct hypernatremia. Patient will be admitted to the ICU. Patient will be sedated on propofol. CT brain and chest ordered. - Diagnoses Provider Diagnoses: Hypernatremia, Respiratory distress - Critical Care Time Critical Care Time: 30-74 min - 30min Upon my evaluation, this patient had a high probability of imminent or life-threatening deterioration due to respiratory failure which required my direct attention, intervention, and personal management. I have personally provided 30 minutes of critical care time exclusive of time spent on separately billable procedures. Time includes review of laboratory data, radiology results, discussion with consultants, and monitoring for potential decompensation. Interventions were performed as documented above Discharge ED - Sign-Out/Discharge Documenting (check all that apply): Patient Departure - Discharge Plan Condition: Stable Disposition: ADMITTED TO [facility] Referrals: Lisa Arango MD [Medical Doctor] - - Billing Disposition and Condition Condition: STABLE Disposition: Admitted to [facility] - Attestation Statements Document Initiated by Scribe: Yes Documenting Scribe: Maryana Lopez Provider For Whom Scribe is Documenting (Include Credential): Peggy Levy MD. Scribe Attestation: IMaryana, scribed for Peggy Levy MD. on 03/30/19 at 1702. Scribe Documentation Reviewed: Yes Provider Attestation: The documentation as recorded by the scribe, Maryana Lopez accurately reflects the service I personally performed and the decisions made by me, Peggy Levy MD. Status of Scribe Document: Viewed Consult Consult: [id number] - I spoke with Dr. Trevino about the pt's present condition who accepts to the ICU.
[2019-03-30] MEDS ORDERED: Propofol* 100 ML ONE (15:37)
[2019-03-30 15:51] LABS: ABS Basophils 0.1 10^3/ul (0-0.2); ABS Lymphocytes 1.6 10^3/ul (1.0-4.8); ABS Monocytes 1.5 10^3/ul (0-0.8); ABS Neutrophils 18.5 10^3/ul (1.5-7.7); Hematocrit 36 % (42-52); Hemoglobin 10.8 g/dL (14.0-18.0); Lymphocyte % 7.5 %; Mean Corpuscular HGB Conc 31 g/dL (31-36); Mean Corpuscular Hemoglobin 24 pg (27-31); Mean Corpuscular Volume 79 fL (80-94); Mean Platelet Volume 10.2 fL (7.4-10.4); Nucleated Red Blood Cells % 0.1; Platelet Count 354 10^3/uL (150-450); Red Blood Count 4.53 10^6 /uL (4.18-5.48); Red Cell Distribution Width 19 % (10-15); White Blood Count 21.7 10^3/uL (3.5-10.8)
[2019-03-30 16:07] LABS: Albumin 3.2 g/dL (3.2-5.2); Albumin/Globulin Ratio 0.8 (1-3); BUN/Creatinine Ratio 19.8 (8-20); Calcium 9.3 mg/dL (8.6-10.3); EGFR African American 35.2 (>60); EGFR Non-African American 29.1 (>60); Globulin 3.8 g/dL (2-4); Potassium 4.5 mmol/L (3.5-5.0); Total Bilirubin 0.6 mg/dL (0.2-1.0)
[2019-03-30] MEDS ORDERED: Acetaminophen TAB* 325 MG PO ONE (16:14)
[2019-03-30 16:44] LABS: Urine Appearance Cloudy; Urine Bilirubin Negative (Negative); Urine Blood Negative (Negative); Urine Color Yellow; Urine Glucose Negative (Negative); Urine Ketones Negative (Negative); Urine Nitrite Negative (Negative); Urine Protein Negative (Negative); Urine Specific Gravity 1.021 (1.010-1.030); Urine Urobilinogen Negative (Negative)
[2019-03-30 16:47] LABS: Troponin I 0.05 ng/mL (<0.04)
[2019-03-30] MEDS ORDERED: NS 0.45% 1000 ML BAG* 1,000 ML IV SCH (17:00)
[2019-03-30] MEDS ORDERED: Piperacillin/Tazobac ADVAN(*) 3.375 GM in NS 0.9% 100 ML* 100 ML IVPB ONE (17:03)
[2019-03-30] MEDS ORDERED: Acetaminophen ADULT LIQ* 650 MG/20.3 ML UDC PO PRN (17:03)
[2019-03-30] MEDS ORDERED: Albuterol 2.5 MG/3 ML NEB.SOL* (0.083%) INH PRN (17:03)
[2019-03-30] MEDS ORDERED: Vancomycin(*) 1,500 MG in NS 0.9% 250 ML* 250 ML IVPB ONE (17:35)
--- NOTE | 2019-03-30 17:42 | HP ---
H&P (Free Text) History and Physical: History and Physical -- Critical Care Limitations in history/physical: intubated/dementia HPI: 84y M w/pmhx of Dementia, Depression, HTN, COPD?, Chronic pain, Normal Pressure Hydrocephalus, glaucoma; comes to ER from [facility] after they found patient in respiratory distress and short of breath after having an episode of vomitting. EMS responded, noting oxygen saturations in 80s, NH sats were 50s. In ER, he was febrile 101.3, tachycardic, tachypneic 30s with sats low 90s on NC 6L. Given his significant work of breathing and bilateral rhales he was intubated for respiratory failure. He was started on sepsis protocol with IVF bolus 2L, Levaquin IV abx. He is currently awake but not alert or aware , intubated, on propofol sedation but not following commands. Last vitals with HR 100s and BP 90s, making urine in bolaños. Unclear what his true baseline is in [facility], documentation from [facility] states he does take orally, uses walker, unclear how responsive or verbal he is. Family was attempted to be contacted and attempts being made now for further information. ED/floor Course: as above ROS: ROS unable to be obtained secondary to intubated/dementia/mental status change/sedation PMHx: Dementia, Depression, HTN, COPD?, Chronic pain, Normal Pressure Hydrocephalus, glaucoma PSHx: none reported Family History: [place] in father and mother+ Social History: Alcohol-none, Smoking-former+, Drug use-none Allergies: Allergies Allergy/AdvReac Type Severity Reaction Status Date / Time No Known Allergies Allergy Verified 01/24/19 11:42 Home Medications: Acetaminophen TAB* [Tylenol TAB*] 500 mg PO 0900,2100 07/24/18 [History Confirmed 03/30/19] Latanoprost 0.005%* [Xalatan 0.005%*] 1 drop BOTH EYES BEDTIME 07/24/18 [ History Confirmed 03/30/19] Nutritional Supplement [Resource 2.0] 120 ml PO AC 07/24/18 [History Confirmed 03/30/19] Sertraline* [Zoloft*] 75 mg PO DAILY 03/30/19 [History Confirmed 03/30/19] traMADol TAB* [Ultram*] 100 mg PO TID 03/30/19 [History Confirmed 03/30/19] Tele: sinus tachy Vitals: Vital Signs Temp 100.5 F 03/30/19 17:06 Pulse 106 03/30/19 17:06 Resp 27 03/30/19 17:06 BP 97/53 03/30/19 17:07 Pulse Ox 94 03/30/19 17:06 Intake & Output 03/29/19 03/30/19 03/30/19 18:59 06:59 18:59 Weight 73.482 kg O2/Vent: AC 20/500/+5/100% Infusions: NS bolus, propofol 45 Current Medications: Acetaminophen (Tylenol Adult Liq*) 650 mg PO Q6H PRN PRN Reason: fever >101 or pain Albuterol (Ventolin 2.5 Mg/3 Ml Neb.Magda*) 2.5 mg INH Q4H PRN PRN Reason: SOB/WHEEZING Chlorhexidine Gluconate (Peridex Mouth Wash 0.12%*) 15 ml TOPICAL Q4H [facility] Famotidine (Pepcid Iv*) 20 mg IV SLOW PU DAILY [facility] Sodium Chloride (Ns 0.45% 1000 Ml Bag*) 1,000 mls @ 225 mls/hr IV PER RATE [facility] Vancomycin HCl 1,500 mg/ (Sodium Chloride) 250 mls @ 166.667 mls/hr IVPB ONCE ONE; Protocol Stop: 03/30/19 19:04 Piperacillin Sod/Tazobactam (Sod 3.375 gm/ Sodium Chloride) 100 mls @ 200 mls/ hr IVPB ONCE ONE Stop: 03/30/19 17:32 Piperacillin Sod/Tazobactam (Sod 3.375 gm/ Sodium Chloride) 100 mls @ 25 mls/ hr IVPB Q8H [facility] Lactated Ringer's (Lactated Ringers 1000 Ml Bag*) 1,000 mls @ 100 mls/hr IV PER RATE [facility] Propofol (Diprivan*) 100 mls @ 4.409 mls/hr IV .PER PROTOCOL [facility]; Protocol Pharmacy Consult (Vancomycin Per Pharmacy*) 1 note FOLLOW UP .VANC PER PHARMACY [facility]; Protocol Pharmacy Consult (Zosyn Per Pharmacy*) 1 note FOLLOW UP .ZOSYN PER PHARMACY [facility] Physical Exam: Constitutional: awake, not aware, intubated, no distress, no diaphoresis Head: normocephalic, atraumatic Eyes: no pallor, no icterus ENT: DRY mucous membranes Neck: soft, supple, no jvd CVS: tachy+ , regular, no murmur Chest/Resp: bilateral air entry, Right sided rhales+ and mild rhonchi+, no wheeze, no acc muscle use Abdomen/GI: soft, nontender, nondistended, BS+ Ext/Msk: warm, pulses+, no edema Skin: DRY, warm Neuro: awake but not alert/aware, moving spontaneously, not following commands, pupils reactive, nystagmus+ Psych: unable to assess Labs: Laboratory Results - last 24 hr 03/30/19 03/30/19 03/30/19 15:28 15:28 15:28 WBC 21.7 H RBC 4.53 Hgb 10.8 L Hct 36 L MCV 79 L MCH 24 L MCHC 31 RDW 19 H Plt Count 354 MPV 10.2 Neut % (Auto) 85.0 Lymph % (Auto) 7.5 [place] % (Auto) 7.0 Eos % (Auto) 0.0 Baso % (Auto) 0.5 Absolute Neuts (auto) 18.5 H Absolute Lymphs (auto) 1.6 Absolute Monos (auto) 1.5 H Absolute Eos (auto) 0.0 Absolute Basos (auto) 0.1 Absolute Nucleated RBC 0.0 Nucleated RBC % 0.1 Sodium 162 H* Potassium 4.5 Chloride 125 H Carbon Dioxide 23 Anion Gap 14 H BUN 43 H Creatinine 2.17 H Est GFR ( Amer) 35.2 Est GFR (Non-Af Amer) 29.1 BUN/Creatinine Ratio 19.8 Glucose 161 H Lactic Acid 4.8 H* Calcium 9.3 Total Bilirubin 0.60 AST 23 ALT 14 Alkaline Phosphatase 120 H Troponin I 0.05 H* Total Protein 7.0 Albumin 3.2 Globulin 3.8 Albumin/Globulin Ratio 0.8 L Urine Color Urine Appearance Urine pH Ur Specific [place] Urine Protein Urine Ketones Urine Blood Urine Nitrate Urine Bilirubin Urine Urobilinogen Ur Leukocyte Esterase Urine Glucose 03/30/19 16:14 WBC RBC Hgb Hct MCV MCH MCHC RDW Plt Count MPV Neut % (Auto) Lymph % (Auto) [place] % (Auto) Eos % (Auto) Baso % (Auto) Absolute Neuts (auto) Absolute Lymphs (auto) Absolute Monos (auto) Absolute Eos (auto) Absolute Basos (auto) Absolute Nucleated RBC Nucleated RBC % Sodium Potassium Chloride Carbon Dioxide Anion Gap BUN Creatinine Est GFR ( Amer) Est GFR (Non-Af Amer) BUN/Creatinine Ratio Glucose Lactic Acid Calcium Total Bilirubin AST ALT Alkaline Phosphatase Troponin I Total Protein Albumin Globulin Albumin/Globulin Ratio Urine Color Yellow Urine Appearance Cloudy Urine pH 5.0 Ur Specific [place] 1.021 Urine Protein Negative Urine Ketones Negative Urine Blood Negative Urine Nitrate Negative Urine Bilirubin Negative Urine Urobilinogen Negative Ur Leukocyte Esterase Negative Urine Glucose Negative Imaging: CXR 03/30 - ett above lizzie; similar Right hemidiaphragm elevation; noted patchy bilateral interstitial infiltrates on Left lower and right midlung chambers +; no ptx Assessment: 84y M w/pmhx of Dementia, Depression, HTN, COPD?, Chronic pain, Normal Pressure Hydrocephalus, glaucoma; comes to ER from [facility] after they found patient in respiratory distress and short of breath after having an episode of vomitting. EMS responded, noting oxygen saturations in 80s , NH sats were 50s. In ER, he was febrile 101.3, tachycardic, tachypneic 30s with sats low 90s on NC 6L. Intubated for Acute Hypoxic Respiratory failure , started on Sepsis protocol for Septic Shock and Suspected Acute Aspiration pneumonia, bilaterally. Noted to have ALEJANDRO, Hypernatremia. Plan: Neuro- -baseline dementia, will need to obtain clarification on degree of dementia and functionality from Son when he arrives. -CT brain w/o contrast ordered -started propofol sedation; may transition to precedex if not in severe distress and synchronous on vent -neurochecks -aspiration prec -Depression-hold zoloft at this time -chronic pain on tramadol; hold pain meds for now -cont latanoprost for glaucoma -Delirium prec; avoid BDZ CVS- -BP 90s, but criteria met for septic shock based on Lactic acid -IVF bolus and LR infusion; follow urine output -IV abx -trend LA; check cortisol/BNP -PRN Pressors, Maintain MAP>65 Resp- -Intubated for acute hypoxic resp failure, suspected aspiration -send sputum culture -cont AC 20/500/+5/100%; obtain ABG -CXR reviewed; CT chest w/o contrast pending -IV abx for aspiration coverage -?COPD but no wheezing -Wean Fio2 to keep sat>92% -Bronchodilators PRN, Aspiration prec, Pulmonary Toilet -VAP bundle ID- febrile 101, wbc 21. LA 4. -CXR 03/30 with noted some bilateral interstitial infiltrates -Dementia; suspected acute aspiration from vomitting of stomach contents -Urinalysis negative; pending culture -check MRSA coverage -sputum culture, check legionella and strept ag, check influenza swab -s/p levaquin; change to Zosyn q8h for gram neg and anaerobic coverage (day#1), Vanco 1gm x1, Pharmacy dosing (day#1) GI- -NPO; NGT+ -GI prophylaxis - h2b Renal- -ALEJANDRO, suspect from hypovolemia + septic ATN -Hypernatremia from free water deficit; s/p NS x2 L; start LR 100cc/hr -check BMP at 9pm -Renal US if urine output not improving -noted urinalysis negative -strict I/O, replete to keep K>4, Mg>2 -bolaños as indicated Heme- hg stable -plt stable Endo- Maintain BG<200, insulin protocol as needed Musculsk- pressure ulcer prophylaxis. Bedrest. Wounds- none Nutrition- NPO DVT prophylaxis: SCD; start heparin sq after CT brain GI prophylaxis: h2b Central Line: no Arterial Line: no Bolaños Cathetor: yes Disposition: Admit to ICU; Expected LOS>2 midnights; Patient requires Critical Care/ICU for septic shock, acute hypoxic resp failure/intubated, aspiration pneumonia suspected Patient Clinical Status: guarded, critical Code Status: full code Total Critical Care time is 65 minutes, excluding procedures/teaching Rm Trevino MD Business Practices Officer (Electronically Signed)
[2019-03-30] MEDS ORDERED: Vancomycin per Pharmacy* NOTE FOLLOW UP SCH (18:00)
[2019-03-30] MEDS ORDERED: Norepinephrine 16MCG/ML IVPRE* 4,000 MCG/250 ML BAG IV SCH (18:00)
[2019-03-30] MEDS ORDERED: Zosyn per Pharmacy* NOTE FOLLOW UP SCH (18:00)
[2019-03-30] MEDS ORDERED: Propofol* 100 ML IV SCH (18:00)
[2019-03-30] MEDS: Lactated Ringers 1000 ML Bag* 1,000 ML IV SCH ×2 (18:10→19:38)
[2019-03-30] MEDS ORDERED: Acetaminophen IV 1GM/100ML * 100 ML IVPB ONE (18:11)
[2019-03-30] MEDS ORDERED: Acetaminophen IV 1GM/100ML * 100 ML ONE (18:18)
[2019-03-30] MEDS ORDERED: EPINEPHrine SYR 0.1MG/ML* SYRINGE ONE (18:44)
--- NOTE | 2019-03-30 19:16 | OP ---
Operative Report - Blank - Operative Report Date of Operation: 03/30/19 Note: Central Line Procedure Note Indication: venous access Diagnosis: septic shock, acute hypoxic respiratory failure, aspiration pneumonia Performed by: Rm Trevino MD Consent: Emergent [place] Protocol: Time-out was performed and the correct patient and site were verified - Prior labs/history was reviewed prior to procedure - Full sterile precautions with chlorhexidine/full drapes/gowns/gloves utilized - Left Internal Jugular Vein visualized with ultrasound - Vessel accessed under ultrasound guidance with return of nonpulsatile blood. A guidewire was passed into vessel and confirmed in vessel with ultrasound. 1 attempt was made to access vessel. Vessel was dilated and cathetor was passed over wire into vessel. All ports demonstrated good blood return and flushed. Catheter was sutured to site and dressing applied. Adequate hemostasis was achieved EBL <5 cc No immediate complications noted, patient tolerated procedure well. Post Procedure CXR: Pending Rm Trevino MD Calibration Checker (Electronically Signed)
--- NOTE | 2019-03-30 19:17 | OP ---
Operative Report - Blank - Operative Report Date of Operation: 03/30/19 Note: Arterial Line Procedure Note Indication: frequent arterial blood gases , invasive hemodynamic monitoring Diagnosis: septic shock, acute hypoxic respiratory failure, aspiration pneumonia Performed by: Rm Trevino MD Consent: Emergent [place] Protocol: Time-out was performed and the correct patient and site were verified - Prior labs/history was reviewed prior to procedure - Full sterile precautions with chlorhexidine/full drapes/gowns/gloves utilized - Left radial artery visualized with US, noted anterior wall calcification; right radial artery also noted calcification but smaller caliber. Left radial artery was attempted. - Vessel accessed with return of pulsatile blood. One attempt was made to access vessel. A cathetor was threaded over wire into vessel. Good arterial waveform was observed on monitor. - Arterial Catheter was sutured to site; dressing applied to site. EBL <5 cc No immediate complications noted, patient tolerated procedure well. Rm Trevino MD Division Service Manager (Electronically Signed)
[2019-03-30] MEDS ORDERED: Dextrose 50% Syringe 50 ML* 25 GM/50 ML SYRINGE IV PUSH PRN ×2 (19:48)
[2019-03-30] MEDS ORDERED: D5LR 1000 ML BAG* 1,000 ML IV SCH (20:00)
[2019-03-30] MEDS ORDERED: Lactated Ringers 1000 ML Bag* 1,000 ML IV SCH (20:00)
[2019-03-30] MEDS: Norepinephrine VIAL* 8 MG in NS 0.9% 500 ML* 492 ML IV SCH ×2 (20:02→20:50)
[2019-03-30 20:06] LABS: BUN/Creatinine Ratio 18.9 (8-20); EGFR African American 33.4 (>60); EGFR Non-African American 27.6 (>60); Potassium 3.4 mmol/L (3.5-5.0)
[2019-03-30] MEDS: Famotidine IV* 10 MG/ML 2 ML (20 mg) IV SLOW PU SCH (20:24)
[2019-03-30] MEDS: fentaNYL* 50 MCG/ML 2 ML VIAL (100 MCG VIAL) IV SLOW PU PRN ×2 (20:37→22:53)
[2019-03-30] MEDS ORDERED: KCL 20 MEQ/100 ML IVPREMIX* 20 MEQ/100 ML BAG IV ONE (20:39)
--- NOTE | 2019-03-30 20:39 | PN ---
Sepsis Event Evaluation Date of Evaluation: 03/30/19 Time of Evaluation: 20:15 Current Stage of Sepsis: Septic Shock Vital Signs - Last 12 Hours: Vital Signs - 12 hr Temp Pulse Resp BP Pulse Ox 03/30/19 19:00 103.8 F 03/30/19 18:01 104.9 F 98/59 03/30/19 18:00 104.6 F 101 29 98/59 100 03/30/19 17:31 91/69 03/30/19 17:27 92/55 03/30/19 17:22 86/54 03/30/19 17:17 95/62 03/30/19 17:11 92/62 03/30/19 17:07 97/53 03/30/19 17:06 100.5 F 106 27 97/53 94 03/30/19 17:01 89/58 03/30/19 16:57 84/59 03/30/19 16:52 96/62 03/30/19 16:46 96/74 03/30/19 16:41 97/65 03/30/19 16:36 84/64 03/30/19 16:32 87/59 03/30/19 16:27 100/51 03/30/19 16:24 90/68 03/30/19 16:22 77/61 03/30/19 16:17 95/55 03/30/19 16:12 101/49 03/30/19 16:06 98/61 03/30/19 16:02 91/59 03/30/19 15:56 125 96/61 54 03/30/19 15:53 121 91/63 03/30/19 15:48 151 27 48 03/30/19 15:36 168 27 117/68 54 03/30/19 15:29 101.3 F 116 59 101/70 100 Lactic Acid: 03/30/19 03/30/19 15:28 19:24 Lactic Acid 4.8 H* 4.4 H* - Cardiopulmonary Exam Capillary Refill: Delayed Respiratory: Symmetrical Chest Expansion and Respiratory Effort, - - rhales+ bilaterally Cardiovascular: NL Sounds; No Murmurs; No JVD, No Edema - Peripheral Pulse Exam Radial Pulses: Bilateral Diminished Pedal Pulses: Bilateral Normal Posterior Tibial Pulse: Bilateral Diminished Femoral Pulses: Bilateral Normal Popliteal Pulses: Bilateral Normal - Skin Exam Skin Exam: Mottling - [place] Coma Scale Best Eye Response: 4 - Spontaneous Best Motor Response: 4 - Withdraws Best Verbal Response: 1 - Intubated Coma Scale Total: 9.0 Assess/Plan/Problems-Billing Assessment:
[2019-03-30] MEDS: Vasopressin* 100 UNITS in D5W 250 ML BAG* 245 ML IV SCH (20:49)
[2019-03-30] MEDS: Chlorhexidine MOUTHWASH 0.12%* 15 ML UDC TOPICAL SCH ×2 (20:49→23:52)
[2019-03-30] MEDS ORDERED: Calcium Gluconate INJ* 2 GM in NS 0.9% 100 ML* 100 ML IV ONE (21:15)
[2019-03-30] MEDS: Latanoprost 0.005%* 2.5 ml BTL BOTH EYES SCH (21:15)
[2019-03-30] MEDS ORDERED: Midazolam IV DRIP 100 MG in NS 0.9% IV SCH (22:30)
[2019-03-30] MEDS ORDERED: Norepinephrine VIAL* 8 MG in NS 0.9% 500 ML* 492 ML IV SCH (23:00)
[2019-03-30] MEDS: Heparin VIAL(*) 5000 UNITS/ML VIAL (FIVE THOUSAND) SUBCUT SCH (23:52)
[2019-03-30] MEDS: NS 0.45% 1000 ML BAG* 1,000 ML IV SCH (23:52)
[2019-03-30] MEDS: Piperacillin/Tazobac ADVAN(*) 3.375 GM in NS 0.9% 100 ML* 100 ML IVPB SCH (23:55)
[2019-03-30] MEDS ORDERED: EPINEPHrine 4 mg/1000 mL Drip (using amps) dosed in mcg/min IV SCH (23:59)
[2019-03-31] MEDS: NS 0.45% 1000 ML BAG* 1,000 ML IV SCH (00:38)
[2019-03-31] MEDS ORDERED: Propofol* 100 ML IV SCH (02:00)
[2019-03-31] MEDS ORDERED: Midazolam IV for DRIP* 100 MG in NS 0.9% 100 ML* 80 ML IV SCH (02:00)
[2019-03-31] MEDS ORDERED: Norepinephrine VIAL* 8 MG in NS 0.9% 500 ML* 492 ML IV SCH (02:01)
[2019-03-31 02:43] LABS: BUN/Creatinine Ratio 19.8 (8-20); Calcium 7.9 mg/dL (8.6-10.3); EGFR African American 36.2 (>60); EGFR Non-African American 29.9 (>60); Potassium 3.6 mmol/L (3.5-5.0)
[2019-03-31] MEDS ORDERED: Hydrocortisone INJ* 100 MG VIAL ONE ×2 (02:46→12:14)
[2019-03-31] MEDS ORDERED: NS 0.45% 1000 ML BAG* 1,000 ML IV SCH (03:00)
[2019-03-31] MEDS ORDERED: Sodium Bicarbonate 8.4%* 50 ML SYRINGE IV ONE ×2 (03:05→06:19)
[2019-03-31] MEDS ORDERED: Sodium Bicarbonate 8.4% IV* 50 ML VIAL ONE ×2 (03:06→03:09)
[2019-03-31 03:24] LABS: Hematocrit 29 % (42-52); Hemoglobin 8.7 g/dL (14.0-18.0); Mean Corpuscular HGB Conc 30 g/dL (31-36); Mean Corpuscular Hemoglobin 24 pg (27-31); Mean Corpuscular Volume 81 fL (80-94); Mean Platelet Volume 9.6 fL (7.4-10.4); Platelet Count 258 10^3/uL (150-450); Red Blood Count 3.63 10^6 /uL (4.18-5.48); Red Cell Distribution Width 19 % (10-15)
--- NOTE | 2019-03-31 03:41 | PN ---
Hospitalist Progress Note Date of Service: 03/31/19 Patient noted to he hypotensive despite multiple pressors, started on stress dose steroids. I was able to speak with son who agreed with DNR, nurse witnessed the conversation, and MOLST form and chart updated.
[2019-03-31] MEDS: Hydrocortisone INJ* 100 MG VIAL IV SCH ×3 (03:42→18:34)
[2019-03-31] MEDS: Norepinephrine VIAL* 8 MG in NS 0.9% 500 ML* 492 ML IV SCH ×8 (03:43→22:42)
[2019-03-31] MEDS: Chlorhexidine MOUTHWASH 0.12%* 15 ML UDC TOPICAL SCH ×6 (03:43→21:05)
[2019-03-31 04:24] LABS: ABS Basophils 0.1 10^3/ul (0-0.2); ABS Lymphocytes 2.5 10^3/ul (1.0-4.8); ABS Monocytes 1.5 10^3/ul (0-0.8); ABS Neutrophils 30.8 10^3/ul (1.5-7.7); ABS Nucleated RBC 0.1 10^3/ul; Eosinophil % 0.1 %; Lymphocyte % 7.2 %; Nucleated Red Blood Cells % 0.2
[2019-03-31] MEDS: EPINEPHrine 4 mg/1000 mL Drip (using amps) dosed in mcg/min IV SCH ×5 (05:02→20:44)
[2019-03-31 05:51] LABS: Hematocrit 31 % (42-52); Mean Corpuscular HGB Conc 29 g/dL (31-36); Mean Corpuscular Hemoglobin 24 pg (27-31); Mean Corpuscular Volume 81 fL (80-94); Mean Platelet Volume 9.2 fL (7.4-10.4); Platelet Count 216 10^3/uL (150-450); Red Blood Count 3.78 10^6 /uL (4.18-5.48); Red Cell Distribution Width 19 % (10-15); White Blood Count 31.6 10^3/uL (3.5-10.8)
[2019-03-31 06:01] LABS: Albumin 2.4 g/dL (3.2-5.2); Albumin/Globulin Ratio 0.9 (1-3); BUN/Creatinine Ratio 19.4 (8-20); Calcium 7.5 mg/dL (8.6-10.3); EGFR African American 37.4 (>60); EGFR Non-African American 30.9 (>60); Globulin 2.7 g/dL (2-4); Indirect Bilirubin 0.5 mg/dL (0.3-1.0); Magnesium 1.5 mg/dL (1.9-2.7); Potassium 3.9 mmol/L (3.5-5.0); Total Bilirubin 0.8 mg/dL (0.2-1.0); Total Protein 5.1 g/dL (6.4-8.9)
[2019-03-31] MEDS: Heparin VIAL(*) 5000 UNITS/ML VIAL (FIVE THOUSAND) SUBCUT SCH ×2 (06:38→14:26)
[2019-03-31] MEDS: Piperacillin/Tazobac ADVAN(*) 3.375 GM in NS 0.9% 100 ML* 100 ML IVPB SCH ×3 (07:50→23:08)
[2019-03-31 08:37] LABS: Influenza A Molecular NEGATIVE (Negative); Influenza B Molecular NEGATIVE (Negative)
[2019-03-31] MEDS: Famotidine IV* 10 MG/ML 2 ML (20 mg) IV SLOW PU SCH (09:59)
[2019-03-31] MEDS ORDERED: Magnesium Sulfate 2 GM IV* 2 GM/50 ML BAG IVPB ONE (10:50)
[2019-03-31] MEDS: Midazolam IV for DRIP* 100 MG in NS 0.9% 100 ML* 80 ML IV SCH ×2 (11:03→20:44)
[2019-03-31] MEDS ORDERED: NS 0.9% 1000 ML** 1,000 ML IV SCH (11:45)
[2019-03-31] MEDS ORDERED: Insulin Infusion 100unit/100mL 100 UNITS/100 ML UNIT IV SCH (12:00)
[2019-03-31] MEDS ORDERED: Lorazepam PYXIS KEY PRN (12:37)
[2019-03-31] MEDS ORDERED: LORazepam INJ* 2 MG/ML 1 ML VIAL IV PUSH ONE (12:37)
--- NOTE | 2019-03-31 14:23 | PN ---
Progress Note - Progress Note Date of Service: 03/31/19 Note: Progress Note -- Critical Care 24 hour events -overnight escalating pressor requirements; remains oliguric/anuric now; on levo /epi/vaso -poor responsiveness, on versed infusion though; off propofol for hemodyn changes -was tmax 104, but not 98 -off IVF, edema+ -Son has not arrived to hospital yet, told overnight that he would come later today -overnight made DNR by hospitalist when he talked to Son Tele: NSR Vitals: Vital Signs Temp 97.9 F 03/31/19 13:00 Pulse 96 03/31/19 13:00 Resp 38 03/31/19 13:00 BP 98/59 03/30/19 18:01 Pulse Ox 100 03/31/19 13:00 Intake & Output 03/30/19 03/31/19 03/31/19 18:59 06:59 18:59 Intake Total 6621.5 147 Output Total 137 73 Balance 6484.5 74 Weight 73.482 kg 73.482 kg Intake: IV Fluids 4812 D5W LR 1420 NS (0.45%) 3260 NS (0.9%) 132 Medicated IV 1807.5 Epinepherine 743.2 Levophed 1003 Versed 16.2 propofol 4 vasopressin 41.1 IV Narcotic Infusion 2 147 Versed 2 147 Output: Bolaños 137 73 O2/Vent: AC 20/450/+8/50% Infusions: versed, levophed, epi, vaso Current Medications: Acetaminophen (Tylenol Adult Liq*) 650 mg PO Q6H PRN PRN Reason: fever >101 or pain Albuterol (Ventolin 2.5 Mg/3 Ml Neb.Magda*) 2.5 mg INH Q4H PRN PRN Reason: SOB/WHEEZING Chlorhexidine Gluconate (Peridex Mouth Wash 0.12%*) 15 ml TOPICAL Q4H [facility] Last Admin: 03/31/19 09:59 Dose: 15 ml Dextrose (D50w Syringe 50 Ml*) 25 gm IV PUSH ONCE PRN PRN Reason: FS < 60 Last Admin: 03/30/19 19:56 Dose: 25 gm Famotidine (Pepcid Iv*) 20 mg IV SLOW PU DAILY [facility] Last Admin: 03/31/19 09:59 Dose: 20 mg Fentanyl Citrate (Fentanyl*) 25 mcg IV SLOW PU Q2H PRN PRN Reason: PAIN - MODERATE Last Admin: 03/30/19 22:53 Dose: 25 mcg Heparin Sodium (Porcine) (Heparin Vial(*)) 5,000 units SUBCUT Q8HR [facility] Last Admin: 03/31/19 06:38 Dose: 5,000 units Hydrocortisone Sodium Succinate (Solu-Cortef*) 100 mg IV Q8H [facility] Last Admin: 03/31/19 12:28 Dose: 100 mg Piperacillin Sod/Tazobactam (Sod 3.375 gm/ Sodium Chloride) 100 mls @ 25 mls/ hr IVPB Q8H [facility] Last Admin: 03/31/19 07:50 Dose: 25 mls/hr Vasopressin 100 units/ (Dextrose) 250 mls @ 6 mls/hr IV Q24H [facility]; Protocol Last Admin: 03/30/19 20:49 Dose: 6 mls/hr Vancomycin HCl 1,000 mg/ (Sodium Chloride) 250 mls @ 166.667 mls/hr IVPB Q24H [facility] Norepinephrine Bitartrate 8 mg (/ Sodium Chloride) 500 mls @ 150 mls/hr IV Q3H [facility]; Protocol Last Admin: 03/31/19 12:04 Dose: 150 mls/hr Epinephrine HCl 4 mg/ Dextrose 1,000 mls @ 225 mls/hr IV Q4H [facility]; Protocol Last Admin: 03/31/19 10:17 Dose: 225 mls/hr Midazolam HCl 100 mg/ Sodium (Chloride) 100 mls @ 10 mls/hr IV Q10H [facility]; Protocol Last Admin: 03/31/19 11:03 Dose: 10 mls/hr Insulin Human Regular (Insulin Regular Iv Infusion 1 Unit/Ml) 100 units in 100 mls @ 1 mls/hr IV Q24H [facility] Last Admin: 03/31/19 12:49 Dose: 4.5 mls/hr Sodium Chloride (Ns 0.9% 1000 Ml) 1,000 mls @ 75 mls/hr IV PER RATE [facility] Latanoprost (Xalatan 0.005%*) 1 drop BOTH EYES BEDTIME [facility] Last Admin: 03/30/19 21:15 Dose: 1 drop Miscellaneous (Ativan Pyxis [place]) 1 ea N/A .ATIVAN IV [place] PRN PRN Reason: PYXIS [place] Pharmacy Consult (Vancomycin Per Pharmacy*) 1 note FOLLOW UP .VANC PER PHARMACY [facility]; Protocol Pharmacy Consult (Zosyn Per Pharmacy*) 1 note FOLLOW UP .ZOSYN PER PHARMACY [facility] Pharmacy Profile Note (Vancomycin Trough Check) 1 note FOLLOW UP 1530 ONE Stop: 04/02/19 15:31 Physical Exam: Constitutional: intubated, sedated, no distress, no diaphoresis Head: normocephalic, atraumatic Eyes: no pallor, no icterus ENT: moist mucous membranes Neck: soft, supple, no jvd CVS: normal rate , regular, no murmur Chest/Resp: bilateral air entry, +rhonchi on right, no rhales, no wheeze, no acc muscle use Abdomen/GI: soft, nontender, nondistended, BS+ Ext/Msk: warm, pulses+, +edema Skin: DRY, warm Neuro: intubated, sedated, pupils reactive+, limited neuro exam Psych: unable to assess Labs: Laboratory Results - last 24 hr 03/30/19 03/30/19 03/30/19 15:28 15:28 15:28 WBC 21.7 H RBC 4.53 Hgb 10.8 L Hct 36 L MCV 79 L MCH 24 L MCHC 31 RDW 19 H Plt Count 354 MPV 10.2 Neut % (Auto) 85.0 Lymph % (Auto) 7.5 [place] % (Auto) 7.0 Eos % (Auto) 0.0 Baso % (Auto) 0.5 Absolute Neuts (auto) 18.5 H Absolute Lymphs (auto) 1.6 Absolute Monos (auto) 1.5 H Absolute Eos (auto) 0.0 Absolute Basos (auto) 0.1 Absolute Nucleated RBC 0.0 Nucleated RBC % 0.1 Patient Temperature ABG pH ABG pH (Temp Correct) ABG pCO2 ABG pCO2 (Temp Corrct ABG pO2 ABG pO2 (Temp Correct ABG HCO3 ABG O2 Saturation ABG Base Excess VBG pH VBG pCO2 VBG pO2 VBG HCO3 VBG O2 Saturation VBG Base Excess Respiration Rate O2 Delivery Device Ventilator Type Vent Mode FiO2 Inspiratory Time PEEP Pressure Support Pressure Control EPAP IPAP BiPAP Sodium 162 H* Potassium 4.5 Chloride 125 H Carbon Dioxide 23 Anion Gap 14 H BUN 43 H Creatinine 2.17 H Est GFR ( Amer) 35.2 Est GFR (Non-Af Amer) 29.1 BUN/Creatinine Ratio 19.8 Glucose 161 H POC Glucose (mg/dL) Hemoglobin A1c Lactic Acid 4.8 H* Calcium 9.3 Ionized Calcium Phosphorus Magnesium Total Bilirubin 0.60 Direct Bilirubin Indirect Bilirubin AST 23 ALT 14 Alkaline Phosphatase 120 H Ammonia Total Creatine Kinase Troponin I 0.05 H* B-Natriuretic Peptide Total Protein 7.0 Albumin 3.2 Globulin 3.8 Albumin/Globulin Ratio 0.8 L Urine Color Urine Appearance Urine pH Ur Specific [place] Urine Protein Urine Ketones Urine Blood Urine Nitrate Urine Bilirubin Urine Urobilinogen Ur Leukocyte Esterase Urine Glucose Influenza A (Rapid) Influenza B (Rapid) Blood Type Antibody Screen 03/30/19 03/30/19 03/30/19 16:14 18:25 19:24 WBC RBC Hgb Hct MCV MCH MCHC RDW Plt Count MPV Neut % (Auto) Lymph % (Auto) [place] % (Auto) Eos % (Auto) Baso % (Auto) Absolute Neuts (auto) Absolute Lymphs (auto) Absolute Monos (auto) Absolute Eos (auto) Absolute Basos (auto) Absolute Nucleated RBC Nucleated RBC % Patient Temperature Not Reportable ABG pH 7.40 ABG pH (Temp Correct) Not Reportable ABG pCO2 31 L ABG pCO2 (Temp Corrct Not Reportable ABG pO2 307 H ABG pO2 (Temp Correct Not Reportable ABG HCO3 21.4 ABG O2 Saturation 100.0 H ABG Base Excess -4.5 L VBG pH VBG pCO2 VBG pO2 VBG HCO3 VBG O2 Saturation VBG Base Excess Respiration Rate 16 O2 Delivery Device [facility] vent Ventilator Type 500 Vent Mode cmv FiO2 100 Inspiratory Time Not Reportable PEEP 5 Pressure Support Not Reportable Pressure Control Not Reportable EPAP Not Reportable IPAP Not Reportable BiPAP Not Reportable Sodium Potassium Chloride Carbon Dioxide Anion Gap BUN Creatinine Est GFR ( Amer) Est GFR (Non-Af Amer) BUN/Creatinine Ratio Glucose POC Glucose (mg/dL) Hemoglobin A1c Lactic Acid Calcium Ionized Calcium Phosphorus Magnesium Total Bilirubin Direct Bilirubin Indirect Bilirubin AST ALT Alkaline Phosphatase Ammonia 38 Total Creatine Kinase Troponin I B-Natriuretic Peptide 231 H Total Protein Albumin Globulin Albumin/Globulin Ratio Urine Color Yellow Urine Appearance Cloudy Urine pH 5.0 Ur Specific [place] 1.021 Urine Protein Negative Urine Ketones Negative Urine Blood Negative Urine Nitrate Negative Urine Bilirubin Negative Urine Urobilinogen Negative Ur Leukocyte Esterase Negative Urine Glucose Negative Influenza A (Rapid) Influenza B (Rapid) Blood Type Antibody Screen 03/30/19 03/30/19 03/30/19 19:24 19:24 19:24 WBC RBC Hgb Hct MCV MCH MCHC RDW Plt Count MPV Neut % (Auto) Lymph % (Auto) [place] % (Auto) Eos % (Auto) Baso % (Auto) Absolute Neuts (auto) Absolute Lymphs (auto) Absolute Monos (auto) Absolute Eos (auto) Absolute Basos (auto) Absolute Nucleated RBC Nucleated RBC % Patient Temperature ABG pH ABG pH (Temp Correct) ABG pCO2 ABG pCO2 (Temp Corrct ABG pO2 ABG pO2 (Temp Correct ABG HCO3 ABG O2 Saturation ABG Base Excess VBG pH VBG pCO2 VBG pO2 VBG HCO3 VBG O2 Saturation VBG Base Excess Respiration Rate O2 Delivery Device Ventilator Type Vent Mode FiO2 Inspiratory Time PEEP Pressure Support Pressure Control EPAP IPAP BiPAP Sodium 159 H* Potassium 3.4 L Chloride 127 H Carbon Dioxide 19 L Anion Gap 13 H BUN 43 H Creatinine 2.27 H Est GFR ( Amer) 33.4 Est GFR (Non-Af Amer) 27.6 BUN/Creatinine Ratio 18.9 Glucose 146 H POC Glucose (mg/dL) Hemoglobin A1c 5.9 H Lactic Acid 4.4 H* Calcium 8.0 L Ionized Calcium Phosphorus Magnesium Total Bilirubin Direct Bilirubin Indirect Bilirubin AST ALT Alkaline Phosphatase Ammonia Total Creatine Kinase Troponin I B-Natriuretic Peptide Total Protein Albumin Globulin Albumin/Globulin Ratio Urine Color Urine Appearance Urine pH Ur Specific [place] Urine Protein Urine Ketones Urine Blood Urine Nitrate Urine Bilirubin Urine Urobilinogen Ur Leukocyte Esterase Urine Glucose Influenza A (Rapid) Influenza B (Rapid) Blood Type Antibody Screen 03/30/19 03/30/19 03/31/19 19:24 19:44 00:27 WBC RBC Hgb Hct MCV MCH MCHC RDW Plt Count MPV Neut % (Auto) Lymph % (Auto) [place] % (Auto) Eos % (Auto) Baso % (Auto) Absolute Neuts (auto) Absolute Lymphs (auto) Absolute Monos (auto) Absolute Eos (auto) Absolute Basos (auto) Absolute Nucleated RBC Nucleated RBC % Patient Temperature ABG pH ABG pH (Temp Correct) ABG pCO2 ABG pCO2 (Temp Corrct ABG pO2 ABG pO2 (Temp Correct ABG HCO3 ABG O2 Saturation ABG Base Excess VBG pH VBG pCO2 VBG pO2 VBG HCO3 VBG O2 Saturation VBG Base Excess Respiration Rate O2 Delivery Device Ventilator Type Vent Mode FiO2 Inspiratory Time PEEP Pressure Support Pressure Control EPAP IPAP BiPAP Sodium Potassium Chloride Carbon Dioxide Anion Gap BUN Creatinine Est GFR ( Amer) Est GFR (Non-Af Amer) BUN/Creatinine Ratio Glucose POC Glucose (mg/dL) 48 L Hemoglobin A1c Lactic Acid 5.7 H* Calcium Ionized Calcium 1.09 L Phosphorus Magnesium Total Bilirubin Direct Bilirubin Indirect Bilirubin AST ALT Alkaline Phosphatase Ammonia Total Creatine Kinase Troponin I B-Natriuretic Peptide Total Protein Albumin Globulin Albumin/Globulin Ratio Urine Color Urine Appearance Urine pH Ur Specific [place] Urine Protein Urine Ketones Urine Blood Urine Nitrate Urine Bilirubin Urine Urobilinogen Ur Leukocyte Esterase Urine Glucose Influenza A (Rapid) Influenza B (Rapid) Blood Type Antibody Screen 03/31/19 03/31/19 03/31/19 01:50 02:07 02:52 WBC RBC Hgb Hct MCV MCH MCHC RDW Plt Count MPV Neut % (Auto) Lymph % (Auto) [place] % (Auto) Eos % (Auto) Baso % (Auto) Absolute Neuts (auto) Absolute Lymphs (auto) Absolute Monos (auto) Absolute Eos (auto) Absolute Basos (auto) Absolute Nucleated RBC Nucleated RBC % Patient Temperature Not Reportable ABG pH 7.20 L ABG pH (Temp Correct) Not Reportable ABG pCO2 36 ABG pCO2 (Temp Corrct Not Reportable ABG pO2 122 H ABG pO2 (Temp Correct Not Reportable ABG HCO3 14.7 L ABG O2 Saturation 100.0 H ABG Base Excess -13.1 L VBG pH VBG pCO2 VBG pO2 VBG HCO3 VBG O2 Saturation VBG Base Excess Respiration Rate 20 O2 Delivery Device vent Ventilator Type 450 Vent Mode cmv FiO2 45 Inspiratory Time 0.8 PEEP 8 Pressure Support Not Reportable Pressure Control Not Reportable EPAP Not Reportable IPAP Not Reportable BiPAP Not Reportable Sodium 150 H D Potassium 3.6 Chloride 121 H Carbon Dioxide 16 L Anion Gap 13 H BUN 42 H Creatinine 2.12 H Est GFR ( Amer) 36.2 Est GFR (Non-Af Amer) 29.9 BUN/Creatinine Ratio 19.8 Glucose 330 H POC Glucose (mg/dL) Hemoglobin A1c Lactic Acid 5.4 H* Calcium 7.9 L Ionized Calcium Phosphorus Magnesium Total Bilirubin Direct Bilirubin Indirect Bilirubin AST ALT Alkaline Phosphatase Ammonia Total Creatine Kinase Troponin I B-Natriuretic Peptide Total Protein Albumin Globulin Albumin/Globulin Ratio Urine Color Urine Appearance Urine pH Ur Specific [place] Urine Protein Urine Ketones Urine Blood Urine Nitrate Urine Bilirubin Urine Urobilinogen Ur Leukocyte Esterase Urine Glucose Influenza A (Rapid) Influenza B (Rapid) Blood Type Antibody Screen 03/31/19 03/31/19 03/31/19 02:55 02:57 02:57 WBC 35.0 H RBC 3.63 L Hgb 8.7 L Hct 29 L MCV 81 MCH 24 L MCHC 30 L RDW 19 H Plt Count 258 MPV 9.6 Neut % (Auto) 88.0 Lymph % (Auto) 7.2 [place] % (Auto) 4.3 Eos % (Auto) 0.1 Baso % (Auto) 0.4 Absolute Neuts (auto) 30.8 H Absolute Lymphs (auto) 2.5 Absolute Monos (auto) 1.5 H Absolute Eos (auto) 0.0 Absolute Basos (auto) 0.1 Absolute Nucleated RBC 0.1 Nucleated RBC % 0.2 Patient Temperature ABG pH ABG pH (Temp Correct) ABG pCO2 ABG pCO2 (Temp Corrct ABG pO2 ABG pO2 (Temp Correct ABG HCO3 ABG O2 Saturation ABG Base Excess VBG pH 7.11 L VBG pCO2 35 L VBG pO2 52.0 H VBG HCO3 10.6 L VBG O2 Saturation 75.0 VBG Base Excess -17.5 L Respiration Rate O2 Delivery Device Ventilator Type Vent Mode FiO2 Inspiratory Time PEEP Pressure Support Pressure Control EPAP IPAP BiPAP Sodium Potassium Chloride Carbon Dioxide Anion Gap BUN Creatinine Est GFR ( Amer) Est GFR (Non-Af Amer) BUN/Creatinine Ratio Glucose POC Glucose (mg/dL) Hemoglobin A1c Lactic Acid Calcium Ionized Calcium Phosphorus Magnesium Total Bilirubin Direct Bilirubin Indirect Bilirubin AST ALT Alkaline Phosphatase Ammonia Total Creatine Kinase Troponin I B-Natriuretic Peptide Total Protein Albumin Globulin Albumin/Globulin Ratio Urine Color Urine Appearance Urine pH Ur Specific [place] Urine Protein Urine Ketones Urine Blood Urine Nitrate Urine Bilirubin Urine Urobilinogen Ur Leukocyte Esterase Urine Glucose Influenza A (Rapid) Influenza B (Rapid) Blood Type A Positive Antibody Screen Negative 03/31/19 03/31/1903/31/19 05:21 05:25 05:25 WBC RBC Hgb Hct MCV MCH MCHC RDW Plt Count MPV Neut % (Auto) Lymph % (Auto) [place] % (Auto) Eos % (Auto) Baso % (Auto) Absolute Neuts (auto) Absolute Lymphs (auto) Absolute Monos (auto) Absolute Eos (auto) Absolute Basos (auto) Absolute Nucleated RBC Nucleated RBC % Patient Temperature Not Reportable ABG pH 7.23 L ABG pH (Temp Correct) Not Reportable ABG pCO2 30 L ABG pCO2 (Temp Corrct Not Reportable ABG pO2 127 H ABG pO2 (Temp Correct Not Reportable ABG HCO3 14.3 L ABG O2 Saturation 100.0 H ABG Base Excess -13.6 L VBG pH VBG pCO2 VBG pO2 VBG HCO3 VBG O2 Saturation VBG Base Excess Respiration Rate Not Reportable O2 Delivery Device toño Ventilator Type 450 Vent Mode Not Reportable FiO2 40 Inspiratory Time Not Reportable PEEP 8 Pressure Support Not Reportable Pressure Control Not Reportable EPAP Not Reportable IPAP Not Reportable BiPAP Not Reportable Sodium 147 H Potassium 3.9 Chloride 115 H Carbon Dioxide 15 L Anion Gap 17 H BUN 40 H Creatinine 2.06 H Est GFR ( Amer) 37.4 Est GFR (Non-Af Amer) 30.9 BUN/Creatinine Ratio 19.4 Glucose 425 H POC Glucose (mg/dL) Hemoglobin A1c Lactic Acid Calcium 7.5 L Ionized Calcium 1.03 L Phosphorus 5.0 Magnesium 1.5 L Total Bilirubin 0.80 Direct Bilirubin 0.30 H Indirect Bilirubin 0.5 AST 28 ALT 17 Alkaline Phosphatase 93 Ammonia Total Creatine Kinase 278 H Troponin I B-Natriuretic Peptide Total Protein 5.1 L Albumin 2.4 L Globulin 2.7 Albumin/Globulin Ratio 0.9 L Urine Color Urine Appearance Urine pH Ur Specific [place] Urine Protein Urine Ketones Urine Blood Urine Nitrate Urine Bilirubin Urine Urobilinogen Ur Leukocyte Esterase Urine Glucose Influenza A (Rapid) Influenza B (Rapid) Blood Type Antibody Screen 03/31/19 03/31/19 03/31/19 05:25 08:11 11:40 WBC 31.6 H RBC 3.78 L Hgb 9.0 L Hct 31 L MCV 81 MCH 24 L MCHC 29 L RDW 19 H Plt Count 216 MPV 9.2 Neut % (Auto) Lymph % (Auto) [place] % (Auto) Eos % (Auto) Baso % (Auto) Absolute Neuts (auto) Absolute Lymphs (auto) Absolute Monos (auto) Absolute Eos (auto) Absolute Basos (auto) Absolute Nucleated RBC Nucleated RBC % Patient Temperature ABG pH ABG pH (Temp Correct) ABG pCO2 ABG pCO2 (Temp Corrct ABG pO2 ABG pO2 (Temp Correct ABG HCO3 ABG O2 Saturation ABG Base Excess VBG pH VBG pCO2 VBG pO2 VBG HCO3 VBG O2 Saturation VBG Base Excess Respiration Rate O2 Delivery Device Ventilator Type Vent Mode FiO2 Inspiratory Time PEEP Pressure Support Pressure Control EPAP IPAP BiPAP Sodium Potassium Chloride Carbon Dioxide Anion Gap BUN Creatinine Est GFR ( Amer) Est GFR (Non-Af Amer) BUN/Creatinine Ratio Glucose POC Glucose (mg/dL) Hemoglobin A1c Lactic Acid 13.8 H* Calcium Ionized Calcium Phosphorus Magnesium Total Bilirubin Direct Bilirubin Indirect Bilirubin AST ALT Alkaline Phosphatase Ammonia Total Creatine Kinase Troponin I B-Natriuretic Peptide Total Protein Albumin Globulin Albumin/Globulin Ratio Urine Color Urine Appearance Urine pH Ur Specific [place] Urine Protein Urine Ketones Urine Blood Urine Nitrate Urine Bilirubin Urine Urobilinogen Ur Leukocyte Esterase Urine Glucose Influenza A (Rapid) Negative Influenza B (Rapid) Negative Blood Type Antibody Screen 03/31/19 12:15 WBC RBC Hgb Hct MCV MCH MCHC RDW Plt Count MPV Neut % (Auto) Lymph % (Auto) [place] % (Auto) Eos % (Auto) Baso % (Auto) Absolute Neuts (auto) Absolute Lymphs (auto) Absolute Monos (auto) Absolute Eos (auto) Absolute Basos (auto) Absolute Nucleated RBC Nucleated RBC % Patient Temperature ABG pH ABG pH (Temp Correct) ABG pCO2 ABG pCO2 (Temp Corrct ABG pO2 ABG pO2 (Temp Correct ABG HCO3 ABG O2 Saturation ABG Base Excess VBG pH VBG pCO2 VBG pO2 VBG HCO3 VBG O2 Saturation VBG Base Excess Respiration Rate O2 Delivery Device Ventilator Type Vent Mode FiO2 Inspiratory Time PEEP Pressure Support Pressure Control EPAP IPAP BiPAP Sodium Potassium Chloride Carbon Dioxide Anion Gap BUN Creatinine Est GFR ( Amer) Est GFR (Non-Af Amer) BUN/Creatinine Ratio Glucose 452 H POC Glucose (mg/dL) Hemoglobin A1c Lactic Acid Calcium Ionized Calcium Phosphorus Magnesium Total Bilirubin Direct Bilirubin Indirect Bilirubin AST ALT Alkaline Phosphatase Ammonia Total Creatine Kinase Troponin I B-Natriuretic Peptide Total Protein Albumin Globulin Albumin/Globulin Ratio Urine Color Urine Appearance Urine pH Ur Specific [place] Urine Protein Urine Ketones Urine Blood Urine Nitrate Urine Bilirubin Urine Urobilinogen Ur Leukocyte Esterase Urine Glucose Influenza A (Rapid) Influenza B (Rapid) Blood Type Antibody Screen Imaging: CXR 03/30 - ett above lizzie; similar Right hemidiaphragm elevation; noted patchy bilateral interstitial infiltrates on Left lower and right midlung chambers +; no ptx CXR 03/31 - increased Right upper/mid inifltrates+, left lower inifltrates+, ett above lizzie Assessment: 84y M w/pmhx of Dementia, Depression, HTN, COPD?, Chronic pain, Normal Pressure Hydrocephalus, glaucoma; comes to ER from [facility] after they found patient in respiratory distress and short of breath after having an episode of vomitting. EMS responded, noting oxygen saturations in 80s , NH sats were 50s. In ER, he was febrile 101.3, tachycardic, tachypneic 30s with sats low 90s on NC 6L. Intubated for Acute Hypoxic Respiratory failure , suspected ARDS, started on Sepsis protocol for Septic Shock and Acute Aspiration pneumonia, bilaterally. Noted to have ALEJANDRO, Hypernatremia. 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 -cont versed; no propofol due to hemodynamics; will wean down if resp status allows -neurochecks -aspiration prec -Depression-hold zoloft at this time -chronic pain on tramadol; hold pain meds for now -cont latanoprost for glaucoma -Delirium prec; avoid BDZ CVS- -Profound Septic Shock; on high doses of vaso, levo, epi; stress hydrocortisone 100mg q8h -Alreayd has signs of edema+, 6+L intake since yesterday -hold off IVF -oliguric/anuric now; rising Lactic acid -cont IV abx -will obtain TTE to eval LV function -Titrate Pressors, Maintain MAP>65 Resp- -Intubated for acute hypoxic resp failure, suspected aspiration -on 50% fio2, peep 8 -requiring intermittent addittional doses of sedatives for tachypnea, likley driven by pneumonia and metabolic acidosis -CXR 03/31 with increased Right infiltrates++, similar left lower -CT chest with R>L infiltrates+ -no wheezing; minimal secretions now -cont IV abx -cont hydrocortisone; no solumedrol indicated -sputum culture with gram pos and negatives -cont AC 20/500/+5/100%; obtain ABG -Wean Fio2 to keep sat>92% -Bronchodilators PRN, Aspiration prec, Pulmonary Toilet -VAP bundle ID- febrile 104, now afebrile, wbc 21-35-31. LA 4-5-13 -CXR 03/31 bilateral infiltrates+ -Dementia; suspected acute aspiration from vomitting of stomach contents -Sputum with gram pos and negative growth+ -influenza neg, leg neg, strept neg -cont zosyn q8h for gram neg and anaerobic coverage (day#2), Vanco (day#2) as per pharmacy dosing -check random vanco at 3pm; anuric/oliguric,suspect that levels will be high GI- -NPO; NGT+ -abd is soft/nondistended; if LA is from abdomen, there is no drop in h/h; but if from abdomen he owuld be poor surgical candidate -GI prophylaxis - h2b Renal- -ALEJANDRO, suspect from hypovolemia + septic ATN; now oliguric/anuric appearing -Hypernatremia, improving; hold further IVF for now Na 147 -gross edema+; hold ivf -check bmp now -K 3s, mild metabolic acidosis likely from LA production, edema, oliguria/anuria ; given shock state may require Dialysis but only if family wants to be aggressive, at this time does not require but may so, but would need CVVH if dialysis indicated. -renal Us without overt obstruction -strict I/O, replete to keep K>4, Mg>2 -bolaños as indicated Heme- hg stable -plt stable Endo- Maintain BG<200, insulin protocol as needed Musculsk- pressure ulcer prophylaxis. Bedrest. CPK noted 200s, trend, cont IVF as needed Wounds- none Nutrition- NPO DVT prophylaxis: SCD; heparin sq GI prophylaxis: h2b Central Line: Left IJ 03/30 Arterial Line: left rad 03/30 Bolaños Cathetor: yes Disposition: Patient requires Critical Care/ICU for septic shock, acute hypoxic resp failure/intubated, aspiration pneumonia Patient Clinical Status: critical Code Status: DNR awaiting son to arrive; critically ill status, rising LA with oliguria/anuria and high pressor requirements. suspect poor chance of survival. Total Critical Care time is 55 minutes, excluding procedures/teaching Rm Trevino MD Technical Service Engineer (Electronically Signed)
[2019-03-31 14:45] LABS: BUN/Creatinine Ratio 19.6 (8-20); Blood Urea Nitrogen 38 mg/dL (6-24); Calcium 7.1 mg/dL (8.6-10.3); EGFR African American 40.1 (>60); EGFR Non-African American 33.1 (>60); Glucose 366 mg/dL (70-100)
[2019-03-31 14:52] LABS: Anion Gap 20 mmol/L (2-11); CO2 Carbon Dioxide 14 mmol/L (22-32); Chloride 114 mmol/L (101-111); Sodium 148 mmol/L (135-145)
[2019-03-31] MEDS ORDERED: Vancomycin(*) 1,000 MG in NS 0.9% 250 ML* 250 ML IVPB SCH (16:00)
--- NOTE | 2019-03-31 19:29 | CONS ---
NEPHROLOGY INPATIENT CONSULT NOTE: DATE OF SERVICE: 03/31/19 REASON FOR CONSULT AND CHIEF COMPLAINT: Acute kidney injury. REQUESTING PHYSICIAN: Dr. Rm Trevino. HISTORY OF PRESENT ILLNESS: The patient is an 84-year-old male who is admitted in ICU, intubated, sedated, on mechanical ventilation. History is taken from discussion with Dr. Trevino, bedside nurse, and review of medical records. The patient is noncommunicative due to intubation and sedation. The story is that the patient came to the emergency room last night from a [facility], [facility], [place] after he was found in respiratory distress. He was brought to the emergency room by EMS where he was found to be febrile with rectal temperature as high as 104.6, tachypneic, low oxygen saturation in 90s on 6 L of oxygen per nasal cannula. He was intubated for respiratory failure and was started on sepsis protocol. He received 6 L of IVF since yesterday. He received antibiotics. Blood pressure in the emergency room was low at 97/53, but still pretty good without any pressors. Chest x-ray on admission showed bilateral diffuse infiltrate. Overnight, the patient became more hypotensive despite multiple pressors and was started on stress- dose steroids. Urine output has been low since admission. He had only 137 mL overnight while he got resuscitated with 6400 cc of fluids. Today he diuresed only 78 mL of urine. At the time of my exam in the ICU, the patient is still hypotensive with a systolic blood pressure of 90 to 100 on 3 pressors, vasopressin, epinephrine and Levophed. Levophed has been slightly decreased in dose. The patient is unresponsive, intubated, sedated on Versed. The patient cannot give any history. REVIEW OF SYSTEMS: Review of system is unobtainable due to the patient's status. PAST MEDICAL HISTORY: Per chart review dementia, depression, hypotension, normal pressure hydrocephalus, and glaucoma. PAST SURGICAL HISTORY: Unobtainable due to patient's condition. FAMILY HISTORY: Per chart review shows myocardial infarction in father and mother. SOCIAL HISTORY: Per chart review he does not drink alcohol. Former smoker. No drug abuse. He lives at [facility]. ALLERGIES: No known allergies. HOME MEDICATIONS: Per chart review, 1. Acetaminophen 500 mg p.o. twice a day as needed. 2. Latanoprost 0.005% one drop both eyes at bedtime. 3. Resource as nutritional supplement daily. 4. Zoloft 75 mg daily. 5. Tramadol 100 mg p.o. b.i.d. Current medications during this admission: 1. Acetaminophen 650 mg p.o. q. 6 hours. 2. Albuterol 2.5 mg every 4 hours p.r.n. 3. Chlorhexidine gluconate 15 mL topical every 4 hours. 4. Dextrose D50 as needed. 5. Epinephrine 15 mcg per minute, continuous infusion. 6. Famotidine 20 mg IV slow push daily. 7. Fentanyl citrate 25 mcg IV slow push every 2 hours as needed for pain. 8. Heparin 5000 units subcutaneously every 8 hours. 9. Hydrocortisone sodium succinate 100 mg IV q. 8 hours. 10. Insulin drip at 1 unit per hour. 11. Latanoprost 1 drop both eyes at bedtime. 12. Midazolam 10 mg per hour. 13. Ativan as needed for agitation. 14. Norepinephrine drip at 150 mL/hour. 15. Vancomycin per pharmacy protocol. 16. Zosyn per pharmacy protocol. 17. Vasopressin at 0.04 units per minute. 18. The patient has received several boluses of sodium bicarbonate push. I do not see that he received any NSAIDs or nephrotoxic medication. PHYSICAL EXAMINATION: On physical exam, blood pressure is 96/78, temperature is 97.9, heart rate is 93 beats per minute, respiratory rate from CO2 sensor is 36 per minute. Oxygen saturation is 99% on FiO2 of 45% on the ventilator. Constitutional: The patient is gravely ill, intubated, sedated, looking disheveled. Eyes: With pink conjunctivae, they are closed and I can open them easily. Pupils are equal and small and respond sluggishly to light. ENMT: Nose and ears appear normal. He is endotracheally intubated. Neck: No thyromegaly or nodules appreciated. Respiratory: Decreased respiratory sounds. Clear to auscultation other than that. Cardiovascular: Regular rate and rhythm. Tachycardic. No murmurs, rubs or gallops appreciated. Trace peripheral edema. GI: Abdomen is soft with no masses. No hepatosplenomegaly appreciated. Bowel sounds are present. Musculoskeletal: Gait cannot be appreciated because of the patient's status. He is as mentioned above sedated. He has no digital cyanosis or clubbing. Skin is pale with livedo reticularis on both lower extremities. Feet are cold and pedal pulses are diminished. Neurologic: Intubated, sedated and unresponsive. Psychiatric: The same, intubated, sedated and unresponsive. DIAGNOSTIC STUDIES/LABORATORY DATA: Labs on admission with white blood cell count was 21.7, it then went up to 35 and earlier this morning was 31.6. Hemoglobin 10.8 on admission, down to 9 this morning. Platelets 354 on admission, 216 today. Most recent ABG at 5 o'clock this morning, pH of 7.23, PCO2 of 30, PO2 of 127, bicarb 14. Sodium on admission was 150, this morning was down to 147. Potassium 3.6 on admission, 3.9 this morning, bicarbonate 16 on admission 15 this morning. Creatinine 2.12 on admission and 2.06 this morning. Blood sugar was 415 at 1 o'clock today and lowest has been 330, the highest being 452. Lactic acid at 11 o'clock this morning was 13.8. Ionized calcium was 1.03, magnesium 1.5. Chest x-ray, which I reviewed myself, shows diffuse infiltrates in both the right and left lung chambers. Kidney ultrasound was done today and was unremarkable with normal renal echogenicity. ASSESSMENT AND PLAN: Mr. Miller is an very unfortunate 84-year-old gentleman who is admitted here with severe sepsis and septic shock of pulmonary origin. 1. Acute kidney injury, oliguric. This is most probably secondary to septic shock, but differential diagnosis includes vasculitis, which can be due to anti- GBM antibodies, ANCA vasculitis or others. There is no report of the patient having hemoptysis. There is no report of patient having hematuria. The presentation is most likely compatible with severe sepsis as the patient had no prodromal symptoms that we know of , and he presented with high fever, leukocytosis, and low blood pressure. - recovery of renal function is not expected unless he recovers from his severe sepsis. - overall prognosis is grave and given by the severity of his sepsis. - code status is DNR - if he remains oliguric and will continue aggressive therapy , he will need dialysis . - because of hemodynamic instability, he will not tolerate intermittent HD, and will need CRRT. 2. Severe lactic acidosis. Serum bicarbonate is 15. He already received multiple doses of sodium bicarbonate. Lactic acid is 13.8. Unfortunately, we cannot offer CRRT at this hospital. If the patient needs to be dialyzed, he will need to be transferred out for CRRT. Unable to do dialysis with such a hemodynamic instability at this time. Potassium is on target. 3. Hypernatremia, is improving. The patient received hypotonic fluids with improvement in his serum sodium concentration. 4. Severe sepsis/septic shock of pulmonary origin. The patient continues on pressors and appropriate antibiotics which are wide spectrum at this time. [id number]/[facility] #: [id number] [facility]
[2019-03-31] MEDS: Vasopressin* 100 UNITS in D5W 250 ML BAG* 245 ML IV SCH (20:28)
[2019-03-31] MEDS: Latanoprost 0.005%* 2.5 ml BTL BOTH EYES SCH (20:57)
[2019-03-31 21:37] LABS: INR 3.82 (0.82-1.09)
[2019-04-01] MEDS: Midazolam IV for DRIP* 100 MG in NS 0.9% 100 ML* 80 ML IV SCH ×2 (00:33→05:02)
[2019-04-01] MEDS: EPINEPHrine 4 mg/1000 mL Drip (using amps) dosed in mcg/min IV SCH ×3 (00:46→08:37)
[2019-04-01 01:14] VITALS: BP 75/44
[2019-04-01] MEDS: Chlorhexidine MOUTHWASH 0.12%* 15 ML UDC TOPICAL SCH ×4 (02:04→14:58)
[2019-04-01] MEDS: Hydrocortisone INJ* 100 MG VIAL IV SCH (03:11)
[2019-04-01] MEDS: Norepinephrine VIAL* 8 MG in NS 0.9% 500 ML* 492 ML IV SCH ×5 (03:50→16:02)
[2019-04-01 04:41] LABS: BUN/Creatinine Ratio 19.7 (8-20); Calcium 7.2 mg/dL (8.6-10.3); EGFR African American 32.5 (>60); EGFR Non-African American 26.8 (>60); Phosphorus 5.5 mg/dL (2.5-5.0)
[2019-04-01 04:58] LABS: Hematocrit 30 % (42-52); Mean Corpuscular HGB Conc 30 g/dL (31-36); Mean Corpuscular Hemoglobin 24 pg (27-31); Mean Corpuscular Volume 79 fL (80-94); Mean Platelet Volume 9.7 fL (7.4-10.4); Platelet Count 119 10^3/uL (150-450); Red Blood Count 3.76 10^6 /uL (4.18-5.48); Red Cell Distribution Width 19 % (10-15); White Blood Count 27.9 10^3/uL (3.5-10.8)
[2019-04-01] MEDS: Piperacillin/Tazobac ADVAN(*) 3.375 GM in NS 0.9% 100 ML* 100 ML IVPB SCH ×2 (08:30→15:31)
[2019-04-01] MEDS: Famotidine IV* 10 MG/ML 2 ML (20 mg) IV SLOW PU SCH (08:48)
[2019-04-01] MEDS ORDERED: Hydrocortisone INJ* 100 MG VIAL IV SCH (09:30)
[2019-04-01] MEDS ORDERED: Furosemide IV* 10 MG/ML 10 ML VIAL (100 MG) IV ONE (09:35)
--- NOTE | 2019-04-01 10:08 | PN ---
NEPHROLOGY INPATIENT PROGRESS NOTE: DATE OF SERVICE: 04/01/19 CHIEF COMPLAINT: Acute kidney injury. HISTORY OF PRESENT ILLNESS: Mr. Miller remained in critical condition in the ICU, sedated and intubated. He clinically is doing a little better than yesterday. He is now down to only 1 pressor, namely epinephrine, from 3 pressors yesterday. Blood pressure is maintained in high 90s. The vent settings have not been changed and he still requires 45% FiO2 to maintain oxygen saturation. He received another 6 L of fluid yesterday. Despite this, he remains anuric. He is unresponsive, sedated. REVIEW OF SYSTEMS: Unobtainable because of sedation. PHYSICAL EXAMINATION: Blood pressure is 107/58, heart rate is 74 beats per minute, temperature is 98.4, and respiratory rate is 28, decreased compared to yesterday. Constitutional: The patient is critically ill, lying in bed, intubated, sedated and unresponsive. Head is atraumatic and normocephalic. He has an endotracheal tube. Pupils are reactive to light, but sluggish and he has no corneal reflex. Chest auscultation shows diffuse rales anteriorly. Heart shows S1 and S2. Regular rate and rhythm. No murmurs, rubs, or gallops appreciated. Abdomen is soft and nondistended. He has decreased bowel movement. Extremities: He continues to have livedo reticularis, decreased pedal pulses, and no clubbing or cyanosis. He has now +1 to +2 pedal edema. LABORATORY DATA: White blood cell count is 27.9, hemoglobin is 9, platelet count is 119. Sodium is 148, potassium is 4.0, total CO2 is 16, and creatinine 2.33. Calcium ionized is 0.9, phosphorous is 5.5. Intake and output: He received 6.5 L of fluid yesterday and had urine output of only 196 cc. Since midnight, he had 8 mL of urine. ASSESSMENT AND PLAN: Mr. Miller is a very unfortunate 84-year-old male who came from [facility] with respiratory distress, found to have severe pneumonia, which is complicated with septic shock and acute kidney injury. 1. Anuric acute kidney injury. Most probably acute tubular necrosis at this time. I do not think that vasculitis is involved here. Clinical presentation is very compatible of severe infection. Hemodynamic instability due to septic shock and severe sepsis - this is improved. The patient requires only 1 pressor to maintain a good blood pressure. 2. Volume status. He is slightly volume overloaded. I would refrain from further IV fluids. Of course, he needs to get his medications. He receives vancomycin and Zosyn. 3. Hypernatremia. This is improving. It is preferable to use hypotonic vehicle for IV medications. 4. Metabolic acidosis. It is stable. Serum bicarbonate today is 16 without any bicarbonate given overnight. 5. Respiratory failure, managed by the ICU team. Vent settings are the same as yesterday. Hopefully, he will continue to improve, and if he needs dialysis , we may be able to do regular intermittent hemodialysis with low blood flows. Shania Brady MD Nephrology [id number]/[facility] #: [id number] MTDD
--- NOTE | 2019-04-01 10:55 | PN ---
Progress Note - Progress Note Date of Service: 04/01/19 Note: Progress Note -- Critical Care 24 hour events -remains intubated; on versed infusion -on levophed 18 and vaso 0.04, off epi -off insulin infusion, BG 90-130s -sedated -meeting with Son yesterday who is Surrogate; plan for re-eval today and decision of further care. -no events overnight noted -only making 5cc/hr of urine Tele: NSR Vitals: Vital Signs Temp 98.4 F 04/01/19 09:00 Pulse 81 04/01/19 09:00 Resp 31 04/01/19 07:00 BP 75/44 04/01/19 01:01 Pulse Ox 98 04/01/19 09:00 Intake & Output 03/31/19 04/01/19 04/01/19 18:59 06:59 18:59 Intake Total 3711 2853.5 33 Output Total 108 88 8 Balance 3603 2765.5 25 Weight 86.2 kg 86.2 kg Intake: IV Fluids 37 667.5 ABX - VANCOMYCIN 213.2 ABX - ZOSYN 454.3 NS (0.9%) 37 Medicated IV 3386 2165.0 CC - Insulin 8 71.0 Epinepherine 1850 GEN - Magnesium 63 Levophed 1408 1819 Versed 183 vasopressin 57 92.0 IV Narcotic Infusion 288 21 33 Versed 288 21 33 Bolaños Irrigate Amount 0 Output: Bolaños 108 88 8 O2/Vent: AC 20/450/+8/50% Infusions: versed, levophed, vaso Current Medications: Acetaminophen (Tylenol Adult Liq*) 650 mg PO Q6H PRN PRN Reason: fever >101 or pain Albuterol (Ventolin 2.5 Mg/3 Ml Neb.Magda*) 2.5 mg INH Q4H PRN PRN Reason: SOB/WHEEZING Chlorhexidine Gluconate (Peridex Mouth Wash 0.12%*) 15 ml TOPICAL Q4H [facility] Last Admin: 04/01/19 10:11 Dose: 15 ml Dextrose (D50w Syringe 50 Ml*) 25 gm IV PUSH ONCE PRN PRN Reason: FS < 60 Last Admin: 03/30/19 19:56 Dose: 25 gm Famotidine (Pepcid Iv*) 20 mg IV SLOW PU DAILY KARO Last Admin: 04/01/19 08:48 Dose: 20 mg Fentanyl Citrate (Fentanyl*) 25 mcg IV SLOW PU Q2H PRN PRN Reason: PAIN - MODERATE Last Admin: 03/30/19 22:53 Dose: 25 mcg Hydrocortisone Sodium Succinate (Solu-Cortef*) 50 mg IV Q8H [facility] Last Admin: 04/01/19 10:34 Dose: 50 mg Piperacillin Sod/Tazobactam (Sod 3.375 gm/ Sodium Chloride) 100 mls @ 25 mls/ hr IVPB Q8H [facility] Last Admin: 04/01/19 08:30 Dose: 25 mls/hr Vasopressin 100 units/ (Dextrose) 250 mls @ 6 mls/hr IV Q24H [facility]; Protocol Last Admin: 03/31/19 20:28 Dose: 6 mls/hr Norepinephrine Bitartrate 8 mg (/ Sodium Chloride) 500 mls @ 150 mls/hr IV Q3H [facility]O; Protocol Last Admin: 04/01/19 08:38 Dose: 150 mls/hr Midazolam HCl 100 mg/ Sodium (Chloride) 100 mls @ 10 mls/hr IV Q10H [facility]; Protocol Last Admin: 04/01/19 05:02 Dose: Not Given Latanoprost (Xalatan 0.005%*) 1 drop BOTH EYES BEDTIME [facility] Last Admin: 03/31/19 20:57 Dose: 1 drop Miscellaneous (Ativan Pyxis [place]) 1 ea N/A .ATIVAN IV [place] PRN PRN Reason: PYXIS [place] Pharmacy Consult (Vancomycin Per Pharmacy*) 1 note FOLLOW UP .VANC PER PHARMACY [facility]; Protocol Pharmacy Consult (Zosyn Per Pharmacy*) 1 note FOLLOW UP .ZOSYN PER PHARMACY [facility] Pharmacy Consult (Vancomycin Random Level*) 1 note FOLLOW UP 2260 ONE Stop: 04/01/19 14:31 Physical Exam: Constitutional: intubated, sedated, no distress, no diaphoresis Head: normocephalic, atraumatic Eyes: no pallor, no icterus ENT: moist mucous membranes Neck: soft, supple, no jvd CVS: normal rate , regular, no murmur Chest/Resp: bilateral air entry, +rhonchi on right, no rhales, no wheeze, no acc muscle use Abdomen/GI: soft, nontender, nondistended, BS+ Ext/Msk: cool, pulses+, +edema ; left hand had more mottling and cyanosis yesterday at fingertips L>>Right but also evidence of cyanosis of tips of fingers on right as well as toes bilaterally, skin mottling+ Skin: DRY, cool Neuro: intubated, sedated, pupils reactive+, limited neuro exam Psych: unable to assess Labs: Reviewed Imaging: CXR 03/30 - ett above lizzie; similar Right hemidiaphragm elevation; noted patchy bilateral interstitial infiltrates on Left lower and right midlung chambers +; no ptx CXR 03/31 - increased Right upper/mid inifltrates+, left lower inifltrates+, ett above lizzie Assessment: 84y M w/pmhx of Dementia, Depression, HTN, COPD?, Chronic pain, Normal Pressure Hydrocephalus, glaucoma; comes to ER from [facility] after they found patient in respiratory distress and short of breath after having an episode of vomitting. EMS responded, noting oxygen saturations in 80s , NH sats were 50s. In ER, he was febrile 101.3, tachycardic, tachypneic 30s with sats low 90s on NC 6L. Intubated for Acute Hypoxic Respiratory failure , suspected ARDS, started on Sepsis protocol for Septic Shock and Acute Aspiration pneumonia, bilaterally. Noted to have ALEJANDRO, Hypernatremia. Distal extremity cyanosis+. 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 I suspect this to be from pressors as well as Arterial line in already small/calcified vessels i noted on Ultrasound -dec hydrocortisone 50mg iv q8h -edema++; off IVF; trial of lasix 80mg IV x1 -cont IV abx -hold off TTE -Titrate Pressors, Maintain MAP>65 Resp- -Intubated for acute hypoxic resp failure, suspected aspiration -on 50% fio2, peep 8 -mild tachypnea+ -CXR 03/31 with increased Right infiltrates++, similar left lower -CT chest with R>L infiltrates+ -no wheezing; minimal secretions now -cont IV abx -cont hydrocortisone -sputum culture with gram pos and negatives -Wean Fio2 to keep sat>92% -Bronchodilators PRN, Aspiration prec, Pulmonary Toilet -VAP bundle ID- afebrile, wbc 21-35-31-27; LA 4-5-13-9 -CXR 03/31 bilateral infiltrates+ -Dementia; suspected acute aspiration from vomitting of stomach contents -Sputum with gram pos and negative growth+, MSSA+ -blood cx x1 with staph capitis+; other set negative, suspect contamination? repeat blood cx if pursuing further tx -influenza neg, leg neg, strept neg -cont zosyn q8h for gram neg and anaerobic coverage (day#3), Vanco (day#3) as per pharmacy dosing -last vano level 7.6 yesterday GI- -NPO; NGT+ -hold any TF for today -abd is soft/nondistended; if LA is from abdomen, there is no drop in h/h; but if from abdomen he owuld be poor surgical candidate -GI prophylaxis - h2b Renal- -ALEJANDRO, suspect from hypovolemia + septic ATN; now anuric appearing -Hypernatremia, mild ; hold further IVF , very gross overload -start free water TF 250cc q6h -reviewed renal consult; has metabolic acidoiss, LA+ slightly better today, K okay, volume overload+ but no pulm edema yet; he will need HD but given pressor needs CRRT. Awaiting discussion with family about further GOC today, based on discussion yesterday he wanted another 24 hour of eval and if no drastic improvement then he would not want further measures -renal Us without overt obstruction -strict I/O, replete to keep K>4, Mg>2 -bolaños as indicated Heme- hg stable -plt stable Endo- Maintain BG<200, insulin protocol as needed. Off insulin IV infusion now, BP improved, change to FS q4h Musculsk- pressure ulcer prophylaxis. Bedrest. CPK noted 400s -Distal mottling from pressors/shock as well as left hand/fingers from arterial line; but appears less cyanotic than yesterday overall. supporttive care, weaning pressors as tolerated. Wounds- none Nutrition- NPO DVT prophylaxis: SCD; heparin sq GI prophylaxis: h2b Central Line: Left IJ 03/30 Arterial Line: left rad 03/30 Bolaños Cathetor: yes Disposition: Patient requires Critical Care/ICU for septic shock, acute hypoxic resp failure/intubated, aspiration pneumonia, ALEJANDRO Patient Clinical Status: critical Code Status: DNR attempted call to Son on both numbers, no response. Hopefully he will call back. Need to decide on further GOC today. No improvement that was signfiicant. Now has evidence of mottling, still with anuric AELJANDRO, shock on pressors. overall poor prognosis. Friend who is close to him states he would not like to have all this done to him Total Critical Care time is 55 minutes, excluding procedures/teaching Rm Trevino MD Faculty Instructor (Electronically Signed)
[2019-04-01] MEDS ORDERED: Sodium Bicarbonate 8.4% IV* 50 ML VIAL IV ONE ×2 (12:57→12:58)
[2019-04-01] MEDS ORDERED: Vancomycin Random Level* NOTE FOLLOW UP ONE (14:00)
--- NOTE | 2019-04-01 14:04 | PN ---
Progress Note - Progress Note Date of Service: 04/01/19 Note: Comfort Care/Compassionate Wean Progress Note Patient is 84y M w/pmhx of Dementia, Depression, HTN, COPD?, Chronic pain, Normal Pressure Hydrocephalus, glaucoma; comes to ER from [facility] after they found patient in respiratory distress and short of breath after having an episode of vomitting. EMS responded, noting oxygen saturations in 80s , NH sats were 50s. In ER, he was febrile 101.3, tachycardic, tachypneic 30s with sats low 90s on NC 6L. Intubated for Acute Hypoxic Respiratory failure , suspected ARDS, started on Sepsis protocol for Septic Shock and Acute Aspiration pneumonia, bilaterally. Noted to have ALEJANDRO, Hypernatremia. Since admission he has progressively worsened to upto 3 pressors, now with anuric Acute kidney injury, demonstrating volume overload and persistent metabolic acidosis from ALJEANDRO and Elevated Lactic acid. He is sedated. Discussion with son, Ed, had about GOC and prognosis. I have discussed current medical problems as well as goals of care with patient' s family/surrogate, Ed who is his Son. The current treatment is not consistent with the goals and wishes of the family or the patient. The family/Surrogate has come to a decision to request for the withdrawal of life-sustaining treatment. The patient lacks capacity to make decisions on his/her own due to encephalopathy, sedated state on ventilator The family/Surrogate is in agreement that transitioning to comfort care pathway with withdrawal of ventilator support is in patient's best interest, and consistent with what their wishes would be in this medical situation. Given the patient's poor prognosis and unlikely change for meaningful recovery, this decision is reasonable, and I am in agreement. The discussion had all the details of a conversation to obtain an informed consent regarding, but not limited to, disclosure of the alternative to the withdrawal of life-sustaining treatment, and, the risks and benefits to the patient, thereby permitting the family to make an informed decision. I have discussed with them the process of withdrawal of pressors and endotracheal tube, and that the patient may not breath and blood pressure will decline, leading to a cardiac arrest in an unknown period of time. At the family's/Surrogate's request and in accordance with the patient's wishes , the life-sustaining treatment will be withdrawn. The patient's agent/family understands, that in all probability, the patient will . Order to stop pressors and extubate patient have been told to Nursing and Respiratory therapist, once friends would arrive. The Son states he would not be present for the withdrawal and his passing since he has dealt with so much. - Opiate IV pushes will be started for pain and resp distress. - Patient will be extubated. - Use of Benzodiazepines for severe respiratory distress as needed. - Use of atropine eye drops sublingually or scopolamine patch for increased secretions as needed - Plan to deactivate AICD, if any - Antiemetics as needed for nausea/vomitting - Pastoral care support at bedside Critical Care Time 35 min, not including procedure; including family discussion about current patient status, goals of care. Rm Trevino MD Acid Bleacher (Electronically Signed)
[2019-04-01] MEDS ORDERED: Lorazepam PYXIS KEY PRN (15:03)
[2019-04-01] MEDS ORDERED: LORazepam INJ* 2 MG/ML 1 ML VIAL IV PUSH PRN (15:30)
[2019-04-01] MEDS: HYDROmorphone INJ1* 1 MG/ML SYRINGE IV SLOW PU PRN ×2 (16:09→17:13)
--- NOTE | 2019-04-01 18:16 | PN ---
Progress Note - Progress Note Date of Service: 04/01/19 Note: Patient apneic, asystolic, no arterial pressure waveform and no palpable pulse. Family at bedside. pronounced at 1815 on 04/01/2019 Rm Trevino MD
--- NOTE | 2019-04-01 18:17 | DS ---
Discharge Summary Patient Name: Itz Miller Date of Admission: 03/30/2019 Date of Discharge: 04/01/2019 Attending: Dr Rm Trevino (audio visual manager) Consultants: Dr Shania Brady (Nephrology) Admitting Diagnoses: 1- Acute Hypoxic Respiratory Failure 2- Severe Sepsis with Shock 3- Acute Aspiration pneumonia, bilateral 4- Acute Kidney Injury 5- Hypernatremia 6- Acute Encephalopathy Discharge Diagnoses: 1- Acute Hypoxic Respiratory Failure 2- Severe Sepsis with Shock 3- Acute Aspiration pneumonia, bilateral 4- Acute Kidney Injury 5- Hypernatremia 6- Metabolic Encephalopathy 7- Left hand Ischemia HPI/Hospital Course: 84y M w/pmhx of Dementia, Depression, HTN, COPD?, Chronic pain, Normal Pressure Hydrocephalus, glaucoma; comes to ER from [facility] after they found patient in respiratory distress and short of breath after having an episode of vomitting. EMS responded, noting oxygen saturations in 80s, NH sats were 50s. In ER, he was febrile 101.3, tachycardic, tachypneic 30s with sats low 90s on NC 6L. Intubated for Acute Hypoxic Respiratory failure 03/30, started on Sepsis protocol for Septic Shock and Suspected Acute Aspiration pneumonia, bilaterally. Noted to have ALEJANDRO, Hypernatremia. Throughout 03/30 evening to 03/31 he escalated on pressor support requiring levophed, vasopressin and epinephrine infusions. He demonstrated Lactic acids of 14, and progressive decline in urine output to anuria on 04/01. He also showed mottling in distal extremities. A Meeting with Son, Ed, was had on 03/31 and decision was to allow an overnight evaluation and treatment and if no improvement by he would like to transition to comfort care and withdraw ventilator and pressor support. On 04/01 eh showed anuria, decreased vasopressor support by 1 less pressor, overload. He would likely need hemodialysis, more likely CVVH, and this was explained to Son. He decided to withdraw ventilator and pressor support and switch to a comfort care pathway. Patient is extubated on 2018 at 1614. He was pronounced on 04/01/2019 at 1815 with friends and family at bedside. Procedures/Imaging: see chart Laboratory/Data: see chart Discharge Medications: none Diet: none Activity: none Condition upon discharge: 04/01/2019 at 1815 Disposition: - Code Status: DNR, Comfort Care Recommendations: none Follow-up: none Total Discharge time 35 minutes Rm Trevino MD Customer Care Team Coach (Electronically Signed)
== END 2019-04-01 18:15 | disposition expired | DRG 871 ==
LOC: ED 15:18 → ICU 16:58
PROVIDERS: ADMIT Internal Medicine Critical Care Medicine; ATTEND Internal Medicine Critical Care Medicine
PROC: 03HY32Z Insertion of Monitoring Device into Upper Artery, Percutaneous Approach (ICD-10-PCS; principal; 2019-03-30)
PROC: 4A133B1 Monitoring of Arterial Pressure, Peripheral, Percutaneous Approach (ICD-10-PCS; 2019-03-30)
PROC: 4A133J1 Monitoring of Arterial Pulse, Peripheral, Percutaneous Approach (ICD-10-PCS; 2019-03-30)
PROC: 05HN33Z Insertion of Infusion Device into Left Internal Jugular Vein, Percutaneous Approach (ICD-10-PCS; 2019-03-30)
PROC: B544ZZA Ultrasonography of Left Jugular Veins, Guidance (ICD-10-PCS; 2019-03-30)
PROC: 3E033XZ Introduction of Vasopressor into Peripheral Vein, Percutaneous Approach (ICD-10-PCS; 2019-03-30)
PROC: 5A1945Z Respiratory Ventilation, 24-96 Consecutive Hours (ICD-10-PCS; 2019-03-30)
PROC: 0BH17EZ Insertion of Endotracheal Airway into Trachea, Via Natural or Artificial Opening (ICD-10-PCS; 2019-03-30)
DX: A41.9 Sepsis, unspecified organism (principal); R65.21 Severe sepsis with septic shock; J96.01 Acute respiratory failure with hypoxia; J69.0 Pneumonitis due to inhalation of food and vomit; G93.41 Metabolic encephalopathy; N17.9 Acute kidney failure, unspecified; E87.2 Acidosis; E87.0 Hyperosmolality and hypernatremia; F03.90 Unspecified dementia, unspecified severity, without behavioral disturbance, psychotic disturbance, mood disturbance, and anxiety; F32.9 Major depressive disorder, single episode, unspecified; H40.9 Unspecified glaucoma; R34 Anuria and oliguria; Z66 Do not resuscitate; E87.70 Fluid overload, unspecified; G89.29 Other chronic pain; I10 Essential (primary) hypertension; J44.9 Chronic obstructive pulmonary disease, unspecified; H91.92 Unspecified hearing loss, left ear; I99.8 Other disorder of circulatory system; Z87.891 Personal history of nicotine dependence
CPT/HCPCS: 36415; 36600; 70450; 71045; 71250; 76775; 80048; 80053; 80076; 80202; 81003; 82140; 82330; 82550; 82803; 82947; 83036; 83605; 83735; 83880; 84100; 84484; 85025; 85027; 85610; 86850; 86900; 86901; 87040; 87070; 87077; 87150; 87186; 87205; 87641; 87899; 93005; 94003; 96365; 96366; 99285; A9270-GY; J0171; J0610; J1170; J1644; J1720; J1815; J1940; J2060; J2250; J2543; J2704; J3010; J3370; J3475; J3480; J7060